=== PATIENT | male | born 2005 | race Caucasian/White ===

== ENCOUNTER 2025-07-21 10:54 | Outpatient (AMB) | payer OTHER, SELFPAY ==
--- NOTE | 2025-07-21 10:58 | A.OFFPC_ITS ---
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 Required: No Accompanied by: Mother Allergies Penicillins Allergy (Severe, Verified 07/21/25 11:02) Shortness of Breath Tobacco use date assessed: 07/21/25 Dental Screening Dental Screen Date: 07/21/25 Did you have a dental visit in the last 12 months?: Yes Did you have a dental problem in the last 6 months where you did not have access to dental care?: No Was dental information given to patient?: Patient has dentist HPI HPI Comments History of Present Illness Details History of Present Illness The patient is a 19 year old male presenting with complaints of stomach issues, including abdominal pain and diarrhea, as well as new onset episodes of chills, arm numbness, and body shaking. Abdominal pain and Diarrhea: The patient reports intermittent abdominal pain and diarrhea for the last month and a half. He previously sought treatment at an urgent care for these symptoms. Possible seizure disorder: The patient describes new, recent episodes where he experiences chills, followed by numbness and weakness in his arm for a second, after which everything returns to normal. These episodes are not painful and do not cause loss of memory. His mother witnessed one event where his whole body was shaking for a few seconds. Anxiety and Depression: The patient has a history of depression for almost three years and anxiety. He takes sertraline and hydroxyzine, and sees a therapist at [facility]. His anxiety was previously severe, preventing him from being around people and seeing a primary care doctor for two to three years. He reports his condition is now a 7 out of 10, with 10 being perfect. Surgical History: - Sinus surgery Medications: - Sertraline for depression and anxiety - Hydroxyzine for anxiety Social History: - Substance Use: The patient reports occ asional use of hookah and vape, typically on special occasions with friends. - Country of Origin: The patient is from [place]. - Hobbies and Interests: He enjoys playi [employer] games on his [employer], specifically Call of Duty and Lonnie. Family History: - The patient denies a family history of seizures or cancer. - His brother had an issue with his hand s where he could not hold things and took medication for a year. Past Medical History - Depression, diagnosed approximately ree years ago. - Anxiety disorder. - He has not seen a primary care physici an in two to three years due to anxiety. Health Maintenance - Patient uses hookah and vape occasiona lly. - Counseled to cut down on hookah use. [facility] Medical History (Updated 07/21/25 @ 12:54 by Elijah Park MD) Hookah pipe smoker Weakness of both arms Numbness of upper extremity Diarrhea Abdominal pain Convulsion Depression Anxiety Surgical History H/O rhinoplasty Social History (Updated 07/21/25 @ 11:05 by Wes Harvey CMA) Housing: House Alcohol intake: never Patient Tobacco Use Status: Never used Tobacco e-Cigarette/Vaping Use: Currently Using Second Hand Smoke Exposure: No service: No Current occupational status: unemployed Current occupational exposures/hazards: No Cognitive needs: No Hearing needs: No Vision needs: No Questionnaire PHQ-9 Over the last 2 weeks, how often have you been bothered by any of the following problems? 1. Little interest or pleasure in doing things: several days 2. Feeling down, depressed, or hopeless: more than half the days 3. Trouble falling or staying asleep, or sleeping too much: more than half the days 4. Feeling tired or having little energy: several days 5. Poor appetite or overeating: several days 6. Feeling bad about yourself - or that you are a failure or have let yourself or your family down: several days 7. Trouble concentrating on things, such as reading the newspaper or watching television: more than half the days 8. Moving or speaking so slowly that other people could have noticed. Or the opposite - being so fidgety or restless that you have been moving around a lot more than usual: not at all 9. Thoughts that you would be better off or of hurting yourself in some way: not at all Total score: 10 Depression Screening Interpretation: Positive Depression Screening Done: Yes 56626 - PHQ-9 Billing: Yes Source: Developed by Drs. Dominick Zarate, Michelle Fournier, Alen Galvan and colleagues, with an educational harmony from [employer]. Thrive Questionnaire Date Thrive assessed: 07/21/25 I am a: Patient What is your living situation today?: I have a steady place to live Within the past 12 months, did the food you bought not last and you didn't have the money to get more?: Never true Within the past 12 months, did you worry whether your food would run out before you got money to buy more?: Never true Do you have trouble paying for medicines?: No Do you have trouble getting transportation to medical appointments?: No Do you have trouble paying your heating and electricity bill?: No Do you have trouble taking care of your child, family member or friend?: No Do you have trouble with day-to-day activities such as bathing, preparing meals, shopping, managing finances, etc.?: No Are you currently unemployed and looking for a job?: No Are you interested in more education?: No Please select the resources that you would like help with: None Currently or been in a relationship where the following occur: No concerns reported THRIVE Score: 0 AUDIT C Alcohol Use Questionnaire (AUDIT-C) 1. How often do you have a drink containing alcohol?: Never Total Score: 0 ISRAEL-7 AMB Questionnaire ISRAEL-7 Date ISRAEL - 7 assessed: 07/21/25 Feeling nervous, anxious, or on edge: 1 = Several days Not being able to stop or control worryin = More than half the days Worrying too much about different things: 2 = More than half the days Trouble relaxin = More than half the days Being so restless that it is hard to sit still: 1 = Several days Becoming easily annoyed or irritable: 2 = More than half the days Feeling afraid as if something awful might happen: 2 = More than half the days Total ISRAEL-7 score (0-4 normal; 5-9 mild; 10-14 moderate; 15-21 severe): 12 Source: Developed by Drs. Dominick Zarate, Michelle Fournier, Alen Galvan and colleagues, with an educational harmony from [employer]. ISRAEL-7 Assessment Billing ISRAEL-7 Assessment Tool: ISRAEL-7 Assessment 49442 Review of Systems Narrative Review of Systems - Constitutional: Reports chills. - Gastrointestinal: Reports intermittent abdominal pain and diarrhea for the past month and a half. - Neurological: Reports recent onset of episodes involving arm numbness, weakness, and whole-body shaking for a few seconds. Denies loss of memory. - Psychiatric: Reports history of depression and anxiety. 10-point ROS reviewed and negative except as noted in HPI Physical exam (Primary Care) Vital Signs: Last Vital Signs Temp 98.1 F 07/21/25 11:08 Pulse 87 07/21/25 11:08 Resp 16 07/21/25 11:08 BP 107/61 07/21/25 11:08 Pulse Ox 97 07/21/25 11:08 Oxygen Delivery Method Room Air 07/21/25 11:08 BMI result Body Mass Index 20.8 Tobacco/Smoking Status: Tobacco use Status Tobacco use date assessed 07/21/25 07/21/25 11:11 Patient Tobacco Use Status Never used Tobacco 07/21/25 11:11 e-Cigarette/Vaping Use Currently Using 07/21/25 11:11 PHQ-9: PHQ-9 Score PHQ-9: Total score 10 07/21/25 11:30 Depression Screening Interpretation: Positive Thrive Assessment: Date of Thrive Assessment Date Thrive assessed 07/21/25 07/21/25 11:11 Currently or been in a relationship where the following occur: No concerns reported Narrative Physical Exam General: Well-appearing, in no acute distress. Vital signs: Within normal limits. HEENT: Normocephalic, atraumatic. PERRLA, EOMI. Conjunctiva clear, sclera anicteric. Oropharynx clear, mucous membranes moist. TMs intact bilaterally. Neck: Supple, no lymphadenopathy, no thyromegaly, no JVD or carotid bruits. Cardiovascular: RRR, normal S1/S2, no murmurs, rubs, or gallops. Peripheral pulses 2+ and symmetric. No edema. Respiratory: Lungs clear to auscultation bilaterally, no wheezes, rales, or rhonchi. Normal effort. Abdomen: Soft, non-tender, non-distended. Normoactive bowel sounds. Positive Rodriguez sign. No hepatosplenomegaly, no masses. MSK: Full range of motion, no joint swelling or deformity. Normal gait. Skin: Warm, dry, intact. No rashes, lesions, or pallor. Neuro: Alert and oriented x3. Cranial nerves II-XII intact. Strength 5/5 throughout. Sensation intact. Reflexes 2+ symmetric. Normal coordination and gait. Psych: Appropriate mood and affect. Normal judgment and insight. Results AMB Hemoglobin A1c AMB Hemoglobin A1c 5.2 % Last Edit by Wes Harvey CMA on 07/21/25 11:30 Results Reviewed Results Reviewed: Laboratory Last Values Hgb A1c (Clinic) 5.2 % (4.0-6.0) 07/21/25 11:28 Coding Level of Care Code New Pt Level 4 (09788) Add On Problem Visit Only Diagnoses Encounter for screening, unspecified Z13.9 Abdominal pain R10.9 Diarrhea R19.7 Numbness of upper extremity R20.0 Weakness of both arms R29.898 Convulsion R56.9 Anxiety F41.9 Depression F32.A Hookah pipe smoker F17.290 Additional Codes ISRAEL-7 Assessment Billing - ISRAEL-7 Assessment Tool: ISRAEL-7 Assessment 65065 ([id number]) PHQ-9 - 66131 - PHQ-9 Billing: Yes ([id number]) Assessment & Plan Assessment & Plan (1) Encounter for screening, unspecified: Code(s): Z13.9 - Encounter for screening, unspecified (2) Abdominal pain: Code(s): R10.9 - Unspecified abdominal pain Category: Medical (3) Diarrhea: Code(s): R19.7 - Diarrhea, unspecified Category: Medical (4) Numbness of upper extremity: Code(s): R20.0 - Anesthesia of skin Category: Medical (5) Weakness of both arms: Code(s): R29.898 - Other symptoms and signs involving the musculoskeletal system Category: Medical (6) Convulsion: Code(s): R56.9 - Unspecified convulsions Category: Medical (7) Anxiety: Code(s): F41.9 - Anxiety disorder, unspecified Category: Medical (8) Depression: Code(s): F32.A - Depression, unspecified Category: Medical (9) Hookah pipe smoker: Code(s): F17.290 - Nicotine dependence, other tobacco product, uncomplicated Category: Social Hx Plan Consent Patient was informed and verbally consented to the use of an ambient scribe for clinic note documentation during this visit. Plan 1. Possible Seizure Disorder - The patient's report of chills, arm numbness, and witnessed body shaking raises concern for possible seizure activity. - An electroencephalogram (EEG) will be ordered to evaluate the electrical activity in the brain and check for seizure potential. - A referral to neurology is planned pending the results of the EEG. 2. Abdominal Pain And Diarrhea - To evaluate the patient's gastrointestinal symptoms and other complaints, a comprehensive set of blood tests will be ordered. - Labs will include a comprehensive metabolic panel (CMP) to check kidney, liver function, and electrolytes. - A complete blood count (CBC), hemoglobin A1c, lipid panel, hepatitis B, hepatitis C, HIV, and syphilis tests will also be performed. - Additionally, levels of B12, folate, vitamin D, and thyroid function will be checked. 3. Follow-Up - The patient will follow up in two weeks to discuss the results of the labs and EEG. Discussion Notes I discussed with the patient and his mother my concerns regarding his new onset episodes of shaking and numbness, which could potentially be seizures. I explained the plan to order an EEG to check the electrical activity in his brain to investigate this possibility. I also informed them that a referral to neurology would be the next step depending on the test results. We reviewed the extensive bloodwork I will be ordering today to get a comprehensive view of his health, including checks for metabolic function, blood counts, infectious diseases, and vitamin levels. I counseled the patient on reducing his hookah use. We agreed that he will get the bloodwork done today and follow up in two weeks to discuss all the results. Patient Instructions - Please go to the lab today to have your blood drawn for the tests we discussed. - You will be contacted to schedule an appointment for an EEG, which is a test that checks the electrical activity in your brain. - It is recommended to cut down on smoking hookah. - Please return to the clinic in two weeks to review your test results. Medical Decision Making The patient is a 19-year-old male presenting with two primary concerns: chronic, intermittent GI issues and new-onset neurological symptoms. The neurological symptoms, described as chills, transient arm numbness and weakness, and a witnessed episode of whole-body shaking, are concerning for a possible seizure disorder. Given the description, an EEG is warranted to evaluate for underlying epileptiform activity. A referral to neurology will be considered based on the EEG results to further investigate and manage this issue. The patient's abdominal pain and diarrhea, along with a positive Rodriguez's sign on exam, warrants investigation. Comprehensive lab work, including a CMP, CBC, and inflammatory markers, will help rule out metabolic, infectious, or inflammatory causes. Given his lack of primary care for several years due to anxiety, a broad screening panel including lipids, HbA1c, vitamin levels, and infectious diseases is prudent for health maintenance. The plan is to gather this initial diagnostic data and have the patient follow up in two weeks to review results and determine the next steps, which will include a neurology consultation if the EEG is abnormal. Total Time Statement 30 min Total time spent caring for the patient today includes pre-visit chart review, documentation, review of laboratory and diagnostic imaging results, medication reconciliation, medically necessary evaluation, counseling on diagnoses, care coordination, ordering appropriate tests and medications, review of tests performed by other providers, reporting test results to the patient, and communication with other healthcare providers. Orders: Orders Hepatitis B Surface Antigen Today Z13.9 - Encounter for screening, unspecified Comprehensive Met. Panel Today Z13.9 - Encounter for screening, unspecified Hepatitis C Antibody Today Z13.9 - Encounter for screening, unspecified TSH reflex Free T4 Today Z13.9 - Encounter for screening, unspecified CT NG by PCR Urine Today Z13.9 - Encounter for screening, unspecified UA CC w/rflx Micro + Cult Today Z13.9 - Encounter for screening, unspecified AMB Hemoglobin A1c Today Z13.9 - Encounter for screening, unspecified Lipid Panel Today Z13.9 - Encounter for screening, unspecified Hemoglobin A1c Today Z13.9 - Encounter for screening, unspecified Magnesium Today Z13.9 - Encounter for screening, unspecified Vitamin D 25-OH (D2 and D3) Today Z13.9 - Encounter for screening, unspecified EEG Routine Today R56.9 - Unspecified convulsions Complete Blood Count Auto Diff Today Z13.9 - Encounter for screening, unspecified Syphilis Screen Today Z13.9 - Encounter for screening, unspecified HIV Ab/Ag Today Z13.9 - Encounter for screening, unspecified Vitamin B12 and Folate Today Z13.9 - Encounter for screening, unspecified Hepatitis B Surface Antibody Today Z13.9 - Encounter for screening, unspecified
[2025-07-21 11:08] VITALS: BP 107/61; PULSE 87; RESP 16; TEMP 36.7; O2SAT 97; BMI 20.8
--- OUTSIDE RECORDS SUMMARY | 2025-07-21 14:12 | XMS_ITS | Encounter Summary ---
Author Organization [facility] Address [address] [place] [id number] Phone Care Team Providers Care Rabbler Name Role Phone Rosina Church MD Primary Care Prov ider Reason for Visit * Reason Comments Med Refill Encounter Details Date Type Department Care Team (Late st Contact Info) Description 09/18/2022 Refill [facility] [address] [phone] Rosina Church MD [address] [id number] Seasonal allergic rhinitis, unspecified trigger Social History Tobacco Use Types Packs/Day Years Used Date Smoking Tobacco: Never Smokeless Tobacco: Never Comments:Never Alcohol Use Standard Drinks/Week Comments No 0 (1 standard drink = 0.6 oz pur e alcohol) Hunger/Food Answer Date Recorded In the last 12 months, did y ou or your family ever eat less than you felt you should because there wasn't enough money for food? No 04/06/2022 Stable Housing Answer Date Recorded Are you worried that in the next 2 months you may not have stable housing? No 04/06/2022 Transportation Concerns Answer Date Rec orded In the last 12 months, have you or your family ever had to go without healthcare because you didn't have a way to get there? No 04/06/2022 Hazards in Home Answer Date Recorded Think about the place you li ve. Do you have problems with any of the following? Pests (mice or roaches), mold, no/not working smoke detectors, water leaks, no window guards. No 2021 Financing Utilities Answer Date Recorde d In the last 12 months, has t he electric, gas, oil, or water company threatened to shut off your services in your home? No 04/06/2022 Safety at Home Answer Date Recorded Are you or your family worried about feeling saf e in your home? No 04/06/2022 Outside Support Answer Date Recorded Do you feel that you need mo re support from other people or programs to help you care for yourself or your family? No 04/06/2022 Understanding Health Concerns Answer Da te Recorded Do you need help understandi ng your or your child's healthcare needs (diagnosis, medications, plan, etc.)? No 04/06/2022 Financing Health Concerns Answer Date R ecorded In the last 12 months, was t here a time when your child needed to see a doctor or get medications or supplies but could not because of cost? No 04/06/2022 Missing School or Work Answer Date Ted rded Did you or your child miss s chool or work because of a health problem that could have been avoided? No 04/06/2022 Sex and Gender Information Value Date Recorded Sex Assigned at Male 03/28/2020 9:03 PM EDT Legal Sex Male 12:17 PM EST Gender Identity Male 03/28/2020 9:03 PM EDT Sexual Orientation Straight 03/23/2020 2: 47 PM EDT documented as of this encounter Plan of Treatment Not on file documented as of this encounter Visit Diagnoses Diagnosis Seasonal allergic rhinitis, unspecified trigger documented in this encounter Care Teams Rabbler Relationship Specialty Start Date End Date Rosina Church MD PCP - General Pediatrics 08/22/22 03/18/23 documented as of this encounter
--- OUTSIDE RECORDS SUMMARY | 2025-07-21 14:12 | XMS_ITS | Encounter Summary ---
Author Organization [facility] Address [address] [place] [id number] Phone Care Team Providers Care Manager Transportation Name Role Phone Rosina Church MD Primary Care Prov ider Reason for Visit * Reason Comments Med Refill Encounter Details Date Type Department Care Team ([facility] st Contact Info) Description 03/18/2023 Refill [facility] [address] [phone] Rosina Church MD [address] [address] Seasonal allergic rhinitis, unspecified trigger Social History [...] PM EDT documented as of this encounter Miscellaneous Notes * Telephone Encounter - Essence Rubio LPN - 03/20/2023 10:12 AM EDT I left v/m for parent to confirm whether refill is needed. * Telephone Encounter - Essence Rubio LPN - 03/19/2023 9:03 AM EDT I left v/m for patient to confirm whether refill is needed. documented in this encounter Plan of Treatment Not on file documented as of this encounter Visit Diagnoses Diagnosis Seasonal allergic rhinitis, unspecified trigger documented in this encounter Care Teams Manager Transportation Relationship Specialty Start Date End Date Rosina Church MD PCP - General Pediatrics 08/22/22 03/18/23 documented as of this encounter
--- OUTSIDE RECORDS SUMMARY | 2025-07-21 14:12 | XMS_ITS | Encounter Summary ---
Author Organization [facility] Address [address] [place] [address] Phone Care Team Providers Care Plumbing Contractor Name Role Phone Rosina Church MD Primary Care Prov ider Reason for Visit * Reason Comments Med Refill Encounter Details Date Type Department Care Team (Late st Contact Info) Description 04/01/2020 Refill [facility] [address] [phone] Rosina Church MD [address] [address] Seasonal allergic rhinitis, unspecified trigger Social History [...] there wasn't enough money for food? No 03/23/2020 Stable Housing Answer Date Recorded Are you worried that in the next 2 months you may not have stable housing? No 03/23/2020 Transportation Concerns Answer Date Rec orded In the last 12 months, have you or your family ever had to go without healthcare because you didn't have a way to get there? No 03/23/2020 Hazards in Home Answer Date Recorded Think about the place you li ve. Do you have problems with any of the following? Pests (mice or roaches), mold, no/not working smoke detectors, water leaks, no window guards. No 2019 Financing Utilities Answer Date Recorde d In the last 12 months, has t he electric, gas, oil, or water company threatened to shut off your services in your home? No 03/23/2020 Safety at Home Answer Date Recorded Are you or your family worried about feeling saf e in your home? No 03/23/2020 Outside Support Answer Date Recorded Do you feel that you need mo re support from other people or programs to help you care for yourself or your family? No 03/23/2020 Understanding Health Concerns Answer Da te Recorded Do you need help understandi ng your or your child's healthcare needs (diagnosis, medications, plan, etc.)? No 03/23/2020 Financing Health Concerns Answer Date R ecorded In the last 12 months, was t here a time when your child needed to see a doctor or get medications or supplies but could not because of cost? No 03/23/2020 Missing School or Work Answer Date Ted rded Did you or your child miss s chool or work because of a health problem that could have been avoided? No 03/23/2020 Sex and Gender Information Value Date Recorded Sex Assigned at Male 03/28/2020 9:03 PM EDT Legal Sex Male 12:17 PM EST Gender Identity Male 03/28/2020 9:03 PM EDT Sexual Orientation Straight 03/23/2020 2: 47 PM EDT documented as of this encounter Miscellaneous Notes * Telephone Encounter - Essence Rubio LPN - 04/02/2020 8:44 AM EDT I left v/m for parent to confirm that refill is needed. documented in this encounter Plan of Treatment Not on file documented as of this encounter Visit Diagnoses Diagnosis Seasonal allergic rhinitis, unspecified trigger documented in this encounter Care Teams Plumbing Contractor Relationship Specialty Start Date End Date Rosina Church MD PCP - General Pediatrics 08/22/22 03/18/23 documented as of this encounter
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
--- OUTSIDE RECORDS SUMMARY | 2025-07-21 14:13 | XMS_ITS | Clinical Summary ---
Author Organization [facility] it Address [address] [place] [address] Care Team Providers Care Milk Truck Driver Name Role Phone Unavailable Primary Care Provider Unavailabl e Social History Tobacco Use Types Packs/Day Years Used Date Smoking Tobacco: Never Assessed Sex and Gender Information Value Date Recorded Sex Assigned at Not on file Legal Sex Male 9:44 AM EST Gender Identity Not on file Sexual Orientation Not on file Plan of Treatment Health Maintenance Due Date Last Done Comments Varicella Vaccines (1 of 2 - 13+ 2-dose series) 2017 HPV Vaccines (1 - Male 3-dos e series) 2019 Meningococcal B Vaccine (1 o f 2 - Standard) 2020 Annual Well Child Visit (3-2 1 years old) 07/04/2022 HIV Screening 07/04/2022 Hepatitis C Screening 07/04/2022 Social Influencers of Health Screening 07/04/2022 DTaP,Tdap,and Td Vaccines (1 - Tdap) 2023 Hepatitis B Vaccines (1 of 3 - 19+ 3-dose series) 2023 Depression Screening 08/06/2024 COVID-19 Vaccine (1 - 2024-2 6 season) 2025 Influenza Vaccine (#1) 2025 06/29/2020 RSV Immunization Adult Patie nts (1 - 1-dose 75+ series) 2079 HIB Vaccines Aged Out No longer eligi ble based on patient's age to complete this topic Hepatitis A Vaccines Aged Out No long er eligible based on patient's age to complete this topic IPV Vaccines Aged Out No longer eligi ble based on patient's age to complete this topic MMR Vaccines Aged Out No longer eligi ble based on patient's age to complete this topic Meningococcal ACWY Vaccine Aged Out N o longer eligible based on patient's age to complete this topic Pneumococcal Vaccine: Pediat rics (0 to 5 Years) and At-Risk Patients (6 to 49 Years) Aged Out No longer eligi ble based on patient's age to complete this topic RSV Immunization Patients Un michaelle 20 months Aged Out No longer eligible b ased on patient's age to complete this topic
--- OUTSIDE RECORDS SUMMARY | 2025-07-21 14:13 | XMS_ITS | Clinical Summary ---
Author Organization [facility] Address [address] [place] [phone] Phone Care Team Providers Care Ophthalmic Technician Name Role Phone Rosina Church MD Primary Ca re Provider Allergies Active Allergy Reactions Criticality Noted Date Comments Penicillins 07/18/2018 Medications No known medications Active Problems Problem Noted Date Diagnosed Date Right lower quadrant abdominal pain 07/18/2018 Social History Tobacco Use Types Packs/Day Years Used Date Smoking Tobacco: Never Assessed Education Answer Date Recorded Are you interested in more education? Not on christal e 12/01/2022 Are you concerned about learning? Not on file 12/01/2022 No 12/01/2022 No 12/01/2022 Digital Access Answer Date Recorded No 12/30/2022 No 12/30/2022 No 12/30/2022 Reliable internet access at home? Not on file 12/30/2022 Device with a working camera? Not on file Sex and Gender Information Value Date Recorded Sex Assigned at Not on file Legal Sex Male 9:47 AM EST Gender Identity Not on file Sexual Orientation Not on file Last Filed Vital Signs Vital Sign Reading Time Taken Comments Blood Pressure 86/56 08/15/2018 9:31 AM EST Pulse 68 08/15/2018 9:31 AM EST Temperature - - Respiratory Rate 16 08/15/2018 9:31 AM EST Oxygen Saturation - - Inhaled Oxygen Concentration - - Weight 52.4 kg (115 lb 9.6 oz) 08/15/2018 9:31 A M EST Height 164 cm (5' 4.57 ) 08/15/2018 9:31 AM EST Body Mass Index 19.5 08/15/2018 9:31 AM EST Plan of Treatment Health Maintenance Due Date Last Done Comments DEVELOPMENTAL/BEHAVIORAL SCREENING (PHQ, PSC, or SWYC) 2007 DEPRESSION SCREENING 2016 SMOKING Hx and SMOKELESS TOBACCO SCREENING 2017 MENINGOCOCCAL VACCINES (B) (1 of 2 - Standard) 2020 ADOLESCENT UNIVERSAL LIPID SCREENING 2021 HEPATITIS C SCREENING 2022 HIV ONE-TIME SCREENING (18-65 YEARS) 2022 INFLUENZA VACCINE (#1) 2025 06/29/2020 COVID-19 VACCINE (2 - 2024- season) 2025 12/23/2020 COMBINED DTaP,Tdap,Td (7 - Td or Tdap) 02/22/2027 02/22/2017, 04/28/2014, 07/20/2008, Additional history exists PNEUMOCOCCAL VACCINES (0-49 years) Aged Out 2004, 2004 No longer eligibl e based on patient's age to complete this topic HIB VACCINES Aged Out 07/20/2005, 05/06, 2004, Additional history exists No longer eligible based on patient's age to complete this topic HEPATITIS A VACCINES Completed 02/26/2014, 05/10/20 13 MMR VACCINES Completed 04/28/2014, 08/29/2006 VARICELLA VACCINES Completed 04/28/2014, 05/10/2013 MENINGOCOCCAL VACCINES (ACWY) Aged Out 11/25/2015 No longer eligible based on patient's age to complete this topic HPV VACCINES Completed 12/14/2016, 11/25/2015 Medical Devices Not on file Insurance [employer] [facility]CO [employer]CO [facility] [employer] ACO Care Teams Ophthalmic Technician Relationship Specialty Start Date End Date Rosina Church MD [address] [place] [id number] PCP - General Adolescent Medicine 07/17/18 Additional Source Comments The information contained in this document represents components of the legal health record. It is not the complete legal health record.[facility]
--- OUTSIDE RECORDS SUMMARY | 2025-07-21 14:13 | XMS_ITS | Encounter Summary ---
Author Organization [facility] Address [address] [place] [phone] Phone Care Team Providers Care Stile Ripsaw Operator Name Role Phone Rosina Church MD Primary Care Prov ider Reason for Visit * Reason Comments Med Refill Encounter Details Date Type Department Care Team ([facility] st Contact Info) Description 02/21/2022 Refill [facility] [address] [phone] Rosina Church MD [address] [phone] Seasonal allergic rhinitis due to pollen Social History Tobacco Use Types Packs/Day Years Used Date Smoking Tobacco: Never Smokeless Tobacco: Never Comments:Never Alcohol Use Standard Drinks/Week Comments No 0 (1 standard drink = 0.6 oz pur e alcohol) Hunger/Food Answer Date Recorded In the last 12 months, did y ou or your family ever eat less than you felt you should because there wasn't enough money for food? No 01/13/2021 Stable Housing Answer Date Recorded Are you worried that in the next 2 months you may not have stable housing? No 01/13/2021 Transportation Concerns Answer Date Rec orded In the last 12 months, have you or your family ever had to go without healthcare because you didn't have a way to get there? No 01/13/2021 Hazards in Home Answer Date Recorded Think about the place you li ve. Do you have problems with any of the following? Pests (mice or roaches), mold, no/not working smoke detectors, water leaks, no window guards. No 2020 Financing Utilities Answer Date Recorde d In the last 12 months, has t he electric, gas, oil, or water company threatened to shut off your services in your home? No 01/13/2021 Safety at Home Answer Date Recorded Are you or your family worried about feeling saf e in your home? No 01/13/2021 Outside Support Answer Date Recorded Do you feel that you need mo re support from other people or programs to help you care for yourself or your family? No 01/13/2021 Understanding Health Concerns Answer Da te Recorded Do you need help understandi ng your or your child's healthcare needs (diagnosis, medications, plan, etc.)? No 01/13/2021 Financing Health Concerns Answer Date R ecorded In the last 12 months, was t here a time when your child needed to see a doctor or get medications or supplies but could not because of cost? No 01/13/2021 Missing School or Work Answer Date Ted rded Did you or your child miss s chool or work because of a health problem that could have been avoided? No 01/13/2021 Sex and Gender Information Value Date Recorded Sex Assigned at Male 03/28/2020 9:03 PM EDT Legal Sex Male 12:17 PM EST Gender Identity Male 03/28/2020 9:03 PM EDT Sexual Orientation Straight 03/23/2020 2: 47 PM EDT documented as of this encounter Miscellaneous Notes * Telephone Encounter - Essence Rubio LPN - 02/21/2022 11:08 AM EDT I left v/m for parent to confirm whether refill is needed. * Telephone Encounter - Mariana Conklin MA - 02/21/2022 9:14 AM EDT Left voicemail regarding needing this refill. documented in this encounter Plan of Treatment Not on file documented as of this encounter Visit Diagnoses Diagnosis Seasonal allergic rhinitis due to pollen documented in this encounter Care Teams Stile Ripsaw Operator Relationship Specialty Start Date End Date Rosina Church MD PCP - General Pediatrics 08/22/22 03/18/23 documented as of this encounter
--- OUTSIDE RECORDS SUMMARY | 2025-07-21 14:13 | XMS_ITS | Encounter Summary ---
Author Organization [facility] Address [address] [place] [address] Phone Care Team Providers Care Office Machine Embossograph Operator Name Role Phone Rosina Church MD Primary Care Prov ider Encounter Details Date Type Department Care Team (Latest Contact Info) Description 11/06/2018 ED [facility] Social History Tobacco Use Types Packs/Day Years Used Date Smoking Tobacco: Never Smokeless Tobacco: Never Comments:Never Alcohol Use Standard Drinks/Week Comments No 0 (1 standard drink = 0.6 oz pur e alcohol) Sex and Gender Information Value Date Recorded Sex Assigned at Male 03/28/2020 9:03 PM EDT Legal Sex Male 12:17 PM EST Gender Identity Male 03/28/2020 9:03 PM EDT Sexual Orientation Straight 03/23/2020 2: 47 PM EDT documented as of this encounter ED Notes * DOCUMENTS, [facility] - 11/06/2018 9:50 AM EDT EDPDOC [facility] EDM *LIVE* ED Physician Documentation Summary Report Patient: RUPAL ARCEO 13/M Service Date: 11/06/18 Account: [id number] : 2005 Service Time: 0950 PCP: DALTON MR#: [id number] HPI General Chief Complaint: Extremity Complaint/Injury Stated Complaint: FALL ON ARM, YESTERDAY Time Seen by MD: 09:47 Source: patient, family, RN notes reviewed Exam Limitations: no limitations Known Signs of Infection: No Ebola Infection Screening: No Risk Documentation Initial Comments 13 year old male complaining of Fall On Arm, Yesterday HPI Comment This is a 13 year old male accompanied by mother who presents to the emergency department with complaints of left elbow pain since yesterday. Patient reports that yesterday while walking home from school, he tripped ultimately striking his left elbow on the ground. Patient reports a 6/10 left elbow pain that worsens with palpation and movement. Denies taking any medication to alleviate the symptoms. Denies any prior injury to his left elbow. Denies any fevers, chills, nausea, vomiting. No other concerns or complaints at this time. Past Medical History Past Medical History PMH and Allergies Reviewed: Yes PMH Collected at Triage Allergies: Coded Allergies: Penicillins (Verified Allergy, Unknown, UNKNOWN, 11/06/18) Pediatric Medical Problem Hx: Denies PMH Social History Smoking Status: Never Smoker Alcohol History: none Drug History: denies Family History Family History: no pertinent family hx Past Inpatient Medical History Inpatient Medical Hx: no pertinent medical hx Inpatient Surgical Hx: no pertinent surgical hx Review Of Systems Review Of Systems Constitutional Symptoms: Denies: chills, fever Eye: Denies: eye pain, vision changes ENT: Denies: nasal pain, mouth pain, sore throat Respiratory: Denies: sputum, wheezes Musculoskeletal: Reports: extremity pain, joint pain; Denies: muscle pain, muscle stiffness, neck pain Gastrointestinal: Denies: diarrhea, nausea, vomiting Skin: Denies: rash Neurological: Denies: numbness, tingling Allergic/Immunologic: Denies: hives Hematologic/Lymphatic: Denies: bleeding Endocrine: Denies: diaphoresis Other: See HPI Exam Exam Vital Signs Vital Signs Date Time Temp Pulse Resp B/P (MAP) Pulse Ox O2 Delivery O2 Flow Rate FiO2 11/06/18 09:49 36.7 80 16 105/63 (77) 100 Room Air Vital Signs Reviewed: on nursing documentation Exam Comment General: awake, calm, cooperative, No apparent distress Skin: warm, dry, No diaphoresis Eyes: PERRLA, EOMI Neck: soft/supple, full range of motion Respiratory: clear to auscultation Cardiovascular: regular rate and rhythm Musculoskeletal: Left elbow there is no obvious bony deformity or swelling. Point tenderness over radial head and posterior aspect. Neurological: alert and oriented X3, no focal deficit Course Course Differential Diagnosis Left elbow contusion Dislocation Sprain Fracture Course Comment ED observation Note Encounter 11-06-2018 9:48 AM Vital signs reviewed. Reviewed all pertinent PMHx and SHx FmHx: no pertinent medical history assessment and plan :Patient seen and evaluated. X-ray of left elbow ordered and reviewed. Patient provided with sling Orders Orders Orders Procedure Category Date Status Time Cr Elbow Lt Min 3 CR 11/06/18 Resulted Views 09:50 Ed Observation Status ED 11/06/18 Transmitted 10:06 Sling, Apply ED 11/06/18 Transmitted 10:18 Xray Xray Interpreted By Me: No Xray Comment [facility] Diagnostic Imaging Department [address] [place] [id number] Patient: RUPAL ARCEO /Age/Sex: 2005 - 13 - M Unit#: [id number] Location/Status: SPER/REG ER Mnemonic/Ordering Site: ELBOWLT/SPMAIN Ordering Physician: DEEAPK HANSON CR Elbow LT Min 3 Views - 04/03/19 - 1004 HISTORY: Left elbow pain after fall. FINDINGS: 3 views left elbow demonstrate no fracture, dislocation, or significant joint effusion. There is normal bone mineralization. Soft tissues are unremarkable. Normal appearance of the growth plates. IMPRESSION: No fracture. [id number] Dictating Physician: VICTORINO STERLING MD Electronically Signed by: VICTORINO STERLING MD Dic Date/Time: 11/06/18 1009 Sign date/Time: 11/06/18 1010 Departure Diagnosis: fall, left elbow injury Disposition: HOME WITH CAREGIVER Condition: Stable Patient Instructions: Elbow Sprain (ED) Additional Instructions: Call the store stock associate today to make a follow-up appointment for next week. Ice the area 3-4 times daily for 15-20 minutes. Wear the sling during the day for the next 48 hours. Take the sling off over the weekend. Take the prescribed ibuprofen 600 mg every 6 hours as needed for pain. Thank you for coming to the [facility] Emergency Department today. Our entire team works together to provide you with the best care possible. Examination and treatment you received in the emergency department has been rendered on an EMERGENCY basis only. It is not intended to be a substitute for or an effort to provide complete medical care. You should follow-up with your primary care provider. Please report to your physician any new or remaining problems, because it is impossible to recognize and treat all elements of injury or illness in a single emergency department visit. If you do not have a primary care provider or require a referral, a follow- up doctor evaluation assistant for the emergency department will be provided in your discharge packet. In the event that you're unable to obtain a followup appointment in a timely fashion, OR you are not getting any better, OR you are getting worse, OR you develop any symptoms of concern, please return here immediately for further evaluation. The emergency department is open 24 hours a day, 7 days a week. Your discharge report is based on information that was available when you were in the emergency department. Scripts Ibuprofen (Ibuprofen) 600 Mg Tablet 600 MG PO Q6H PRN for MILD PAIN SCALE 1-3, #30 TABLET Prov: DEEPAK HANSON 11/06/18 Attestation Scribe Information Enter Scribe Name Yue Chenibrenee Enter Provider Name JOHANNA Castillo Scribe Statement I am serving as a scribe to document services personally performed by the Provider named above, based on the patient's responses to questions from the Provider and the Provider's statements to me. Provider Information Provider Attestation I was present during the entire encounter which the scribe was recording. I have reviewed and verified that the information entered by scribe is accurate. DEEPAK HANSON Nov 06, 2018 10:23 ED Physician: DEEPAK HANSON Documentation Date/Time: 11/06/18 1023 <Electronically signed by JOHANNA GRANDA> 11/06/18 1328 <Electronically signed by DORIS METCALF MD> 11/07/18 1322 documented in this encounter Plan of Treatment Not on file documented as of this encounter Visit Diagnoses Not on filedocumented in this encounter Care Teams Office Machine Embossograph Operator Relationship Specialty Start Date End Date Rosina Church MD PCP - General Pediatrics 08/22/22 03/18/23 documented as of this encounter
--- OUTSIDE RECORDS SUMMARY | 2025-07-21 14:13 | XMS_ITS | Encounter Summary ---
Author Organization [facility] Address [address] [place] [address] Phone Care Team Providers Care Conveyor Mechanic Name Role Phone Rosina Church MD Primary Care Prov ider Reason for Visit * Reason Comments Med Refill Encounter Details Date Type Department Care Team (Late st Contact Info) Description 04/06/2020 Refill [facility] [address] [phone] Rosina Church MD [address] [phone] Seasonal allergic rhinitis, unspecified trigger Social History [...] trigger documented in this encounter Care Teams Conveyor Mechanic Relationship Specialty Start Date End Date Rosina Church MD PCP - General Pediatrics 08/22/22 03/18/23 documented as of this encounter
--- OUTSIDE RECORDS SUMMARY | 2025-07-21 14:13 | XMS_ITS | Encounter Summary ---
Author Organization [facility] Address [address] [place] [address] Phone Care Team Providers Care Home Appliances Mechanic Name Role Phone Rosina Church MD Primary Care Prov ider Encounter Details Date Type Department Care Team (Late st Contact Info) Description 03/22/2017 Conversion Encounter [facility] - [address] [phone] Social History Tobacco Use Types Packs/Day Years [...] on filedocumented in this encounter Care Teams Home Appliances Mechanic Relationship Specialty Start Date End Date Rosina Church MD PCP - General Pediatrics 08/22/22 03/18/23 documented as of this encounter
--- OUTSIDE RECORDS SUMMARY | 2025-07-21 14:13 | XMS_ITS | Encounter Summary ---
Author Organization [facility] Address [address] [place] [address] Phone Care Team Providers Care Nursery School Teacher Name Role Phone Rosina Church MD Primary Care Prov ider Encounter Details Date Type Department Care Team (Late st Contact Info) Description 10/04/2017 Conversion Encounter [facility] [address] [phone] Rosina Charles MD [address] [address] Social History Tobacco Use Types Packs/Day Years Used Date Smoking Tobacco: Never Comments:Never Sex and Gender Information Value Date Recorded Sex Assigned at Male 03/28/2020 9:03 PM EDT Legal Sex Male 12:17 PM EST Gender Identity Male 03/28/2020 9:03 PM EDT Sexual Orientation Straight 03/23/2020 2: 47 PM EDT documented as of this encounter Plan of Treatment Not on file documented as of this encounter Visit Diagnoses Not on filedocumented in this encounter Care Teams Nursery School Teacher Relationship Specialty Start Date End Date Rosina Church MD PCP - General Pediatrics 08/22/22 03/18/23 documented as of this encounter
== END 2025-07-21 11:37 | disposition home or self-care (01) ==
PROVIDERS: PCP Student in an Organized Health Care Education/Training Program; Visit Provider Student in an Organized Health Care Education/Training Program
DX: Z13.9 Encounter for screening, unspecified (principal); R10.9 Unspecified abdominal pain; R19.7 Diarrhea, unspecified; R20.0 Anesthesia of skin; R29.898 Other symptoms and signs involving the musculoskeletal system; R56.9 Unspecified convulsions; F41.9 Anxiety disorder, unspecified; F32.A Depression, unspecified; F17.290 Nicotine dependence, other tobacco product, uncomplicated

== ENCOUNTER → 2025-07-21 10:54 | Outpatient (BNVA) | payer OTHER, SELFPAY | PROVIDERS: Visit Provider Student in an Organized Health Care Education/Training Program | DX: R10.9 Unspecified abdominal pain (principal); R19.7 Diarrhea, unspecified; R20.0 Anesthesia of skin; R29.898 Other symptoms and signs involving the musculoskeletal system; R56.9 Unspecified convulsions; F41.9 Anxiety disorder, unspecified; F32.A Depression, unspecified; F17.290 Nicotine dependence, other tobacco product, uncomplicated; Z71.6 Tobacco abuse counseling | CPT/HCPCS: 83036; 96127; 99202 ==

== ENCOUNTER 2025-07-23 09:21 | Outpatient (REF) | payer OTHER, SELFPAY ==
--- OUTSIDE RECORDS SUMMARY | 2025-07-23 10:46 | XMS_ITS | Encounter Summary ---
Author Organization [facility] Address [address] [place] [address] Phone Care Team Providers Care Hot Pond Operator Name Role Phone Rosina Church MD Primary Care Prov ider Reason for Visit * Reason Comments Med Refill Encounter Details Date Type Department Care Team ([facility] st Contact Info) Description 03/18/2023 Refill [facility] [address] [phone] Rosina Church MD [address] [address] Seasonal allergic rhinitis, unspecified trigger Social History [...] trigger documented in this encounter Care Teams Hot Pond Operator Relationship Specialty Start Date End Date Rosina Church MD PCP - General Pediatrics 08/22/22 03/18/23 documented as of this encounter
--- OUTSIDE RECORDS SUMMARY | 2025-07-23 10:46 | XMS_ITS | Encounter Summary ---
Author Organization [facility] Address [address] [place] [address] Phone Care Team Providers Care Kier Boiler Name Role Phone Rosina Church MD Primary Care Prov ider Encounter Details Date Type Department Care Team (Late st Contact Info) Description 03/22/2017 Conversion Encounter [facility] - [address] [address] Social History Tobacco Use Types Packs/Day Years [...] on filedocumented in this encounter Care Teams Kier Boiler Relationship Specialty Start Date End Date Rosina Church MD PCP - General Pediatrics 08/22/22 03/18/23 documented as of this encounter
--- OUTSIDE RECORDS SUMMARY | 2025-07-23 10:46 | XMS_ITS | Encounter Summary ---
Author Organization [facility] Address [address] [place] [address] Phone Care Team Providers Care Member Services Representative Name Role Phone Rosina Church MD Primary Care Prov ider Reason for Visit * Reason Comments Med Refill Encounter Details Date Type Department Care Team (Late st Contact Info) Description 09/18/2022 Refill [facility] [address] [phone] Rosina Church MD [address] [phone] Seasonal allergic rhinitis, unspecified trigger Social History [...] trigger documented in this encounter Care Teams Member Services Representative Relationship Specialty Start Date End Date Rosina Church MD PCP - General Pediatrics 08/22/22 03/18/23 documented as of this encounter
--- OUTSIDE RECORDS SUMMARY | 2025-07-23 10:46 | XMS_ITS | Encounter Summary ---
Author Organization [facility] Address [address] [place] [address] Phone Care Team Providers Care Tannery Gummer Name Role Phone Rosina Church MD Primary Care Prov ider Reason for Visit * Reason Comments Med Refill Encounter Details Date Type Department Care Team ([facility] st Contact Info) Description 02/21/2022 Refill [facility] [address] [phone] Rosina Church MD [address] [address] Seasonal allergic rhinitis due to pollen Social [...] pollen documented in this encounter Care Teams Tannery Gummer Relationship Specialty Start Date End Date Rosina Church MD PCP - General Pediatrics 08/22/22 03/18/23 documented as of this encounter
--- OUTSIDE RECORDS SUMMARY | 2025-07-23 10:46 | XMS_ITS | Encounter Summary ---
Author Organization [facility] Address [address] [place] [address] Phone Care Team Providers Care Supervisor Electronics Processing Name Role Phone Rosina Church MD Primary Care Prov ider Reason for Visit * Reason Comments Med Refill Encounter Details Date Type Department Care Team (Late st Contact Info) Description 04/01/2020 Refill [facility] [address] [phone] Rosina Church MD [address] [address] Seasonal allergic rhinitis, unspecified trigger Social History [...] trigger documented in this encounter Care Teams Supervisor Electronics Processing Relationship Specialty Start Date End Date Rosina Church MD PCP - General Pediatrics 08/22/22 03/18/23 documented as of this encounter
--- OUTSIDE RECORDS SUMMARY | 2025-07-23 10:46 | XMS_ITS | Encounter Summary ---
Author Organization [facility] Address [address] [place] [address] Phone Care Team Providers Care Baton Teacher Name Role Phone Rosina Church MD Primary Care Prov ider Encounter Details Date Type Department Care Team (Latest Contact Info) Description 11/06/[address] [facility] Social History Tobacco Use Types Packs/Day Years [...] of this encounter ED Notes * DOCUMENTS, [facility] - 11/06/2018 9:[address] [facility] EDM *LIVE* ED Physician Documentation Summary Report Patient: RUPAL ARCEO 13/M Service Date: 11/06/18 Account: [id number] : 2005 Service Time: 0950 PCP: DALTON MR#: [id number] HPI General Chief Complaint: Extremity Complaint/Injury Stated [...] Xray Interpreted By Me: No Xray Comment [facility] Diagnostic Imaging Department [address] [place] [address] Patient: RUPAL ARCEO /Age/Sex: 2005 - 13 - M Unit#: [id number] Location/Status: SPER/REG ER Mnemonic/Ordering Site: ELBOWLT/SPMAIN Ordering Physician: DEEPAK HANSON CR Elbow LT Min 3 Views - 04/03/19 - 1004 HISTORY: Left elbow pain after fall. FINDINGS: 3 views left elbow demonstrate no fracture, dislocation, or significant joint effusion. There is normal bone mineralization. Soft tissues are unremarkable. Normal appearance of the growth plates. IMPRESSION: No fracture. [id number] Dictating Physician: VICTORINO STERLING MD Electronically Signed by: VICTORINO STERLING MD Dic Date/Time: 11/06/18 1009 Sign date/Time: 11/06/18 1010 Departure Diagnosis: fall, left elbow injury Disposition: HOME WITH CAREGIVER Condition: Stable Patient Instructions: Elbow Sprain (ED) Additional Instructions: Call the lusterer today to make a follow-up appointment for next week. Ice the area 3-4 times daily for 15-20 minutes. Wear the sling during the day for the next 48 hours. Take the sling off over the weekend. Take the prescribed ibuprofen 600 mg every 6 hours as needed for pain. Thank you for coming to the [facility] Emergency Department today. Our entire team works [...] require a referral, a follow- up doctor early interventionist for the emergency department will be provided [...] on filedocumented in this encounter Care Teams Baton Teacher Relationship Specialty Start Date End Date Rosina Church MD PCP - General Pediatrics 08/22/22 03/18/23 documented as of this encounter
--- OUTSIDE RECORDS SUMMARY | 2025-07-23 10:46 | XMS_ITS | Encounter Summary ---
Author Organization [facility] Address [address] [place] [address] Phone Care Team Providers Care Integrated Marketing Intern Name Role Phone Rosina Church MD Primary Care Prov ider Reason for Visit * Reason Comments Med Refill Encounter Details Date Type Department Care Team (Late st Contact Info) Description 04/06/2020 Refill [facility] [address] [phone] Rosina Church MD [address] [address] Seasonal allergic rhinitis, unspecified trigger Social History [...] trigger documented in this encounter Care Teams Integrated Marketing Intern Relationship Specialty Start Date End Date Rosina Church MD PCP - General Pediatrics 08/22/22 03/18/23 documented as of this encounter
--- OUTSIDE RECORDS SUMMARY | 2025-07-23 10:46 | XMS_ITS | Clinical Summary ---
Author Organization [facility] Address [address] [facility] [address] [place] [address] Phone Care Team Providers Care Lead Data Entry Operator Name Role Phone Rosina Church MD [...] 11/25/2015 Medical Devices Not on file Insurance [employer] [facility] [employer] [facility] [employer] Care Teams Lead Data Entry Operator Relationship Specialty Start Date End Date Rosina Church MD [address] [place] [address] PCP - General Adolescent Medicine 07/17/18 Additional Source Comments The information contained in this document represents components of the legal health record. It is not the complete legal health record.[facility]
--- OUTSIDE RECORDS SUMMARY | 2025-07-23 10:46 | XMS_ITS | Encounter Summary ---
Author Organization [facility] Address [address] [place] [address] Phone Care Team Providers Care Mud Trucker Name Role Phone Rosina Church MD Primary Care Prov ider Encounter Details Date Type Department Care Team (Late st Contact Info) Description 10/04/2017 Conversion Encounter [facility] [address] [phone] Rosnia Charles MD [address] [address] Social History Tobacco Use Types Packs/Day Years [...] on filedocumented in this encounter Care Teams Mud Trucker Relationship Specialty Start Date End Date Rosina Church MD PCP - General Pediatrics 08/22/22 03/18/23 documented as of this encounter
--- OUTSIDE RECORDS SUMMARY | 2025-07-23 10:46 | XMS_ITS | Clinical Summary ---
Author Organization [facility] Address [address] [place] [address] Phone Care Team Providers Care Marketing Operations Specialist Name Role Phone Unavailable Primary Care Provider [...] she (Maryjo) needed notes and demographics for Rupal. I faxed her the notes and demographics. 06/05/2018- On 05/28/18 & 05/30/18 and today I received a call from mom stating that Rupal is continually receiving jail, he doesn't want to go to school [...] language to fit in which he receives jail for. She stated that he is receiving all services documented in his IEP. She stated that they have created a small lunch group for Rupal with other students to increase his social skills. She stated that Samer is not a behavioral problem. I called mom to let her know about my conversation with the principal. Mom stated that Rupal says he gets jail for doing nothing. I suggested that mom request a meeting with all of Rupal's teachers. 10/29/18- I received a call from mom stating that Rupal ran out of the school building today and she had to pick him up. She stated that she doesn't know what to do about him. She stated that he doesn't like going to school and always gets jail. I suggested to mom that she call [...] 9:08 PM EDT): F/up labs ordered at [facility] Heart murmur 07/11/2021 Overview (01/09/2022): Benign, [...] (11/24/2021 10:30 AM EDT): Will complete a [facility] diary. Prior to f/up in 3 wks. 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 AGE [facility] Assessment & Plan (04/17/2019 7:48 PM [...] t he electric, gas, oil, or water [employer] threatened to shut off your services in [...]
--- OUTSIDE RECORDS SUMMARY | 2025-07-23 10:46 | XMS_ITS | Clinical Summary ---
Author Organization [facility] it Address [address] [place] [address] Care Team Providers Care Purchasing Associate Name Role Phone Unavailable Primary Care Provider [...]
[2025-07-23 14:19] LABS: Appearance Urine Clear; Glucose Urine UA Negative (Negative); PH 8.0 (5.0-9.0); Specific Gravity - Urine 1.010 (1.005-1.025)
[2025-07-23 14:20] LABS: MANUAL DIFF FLAG NO
[2025-07-23 14:28] LABS: Hematocrit 48.9 % (42.0-52.0); Hemoglobin 16.3 g/dl (14.0-18.0); Imm Gran Abs Auto 0.01 X10*3/uL (0.00-0.03); Imm Gran Pct Auto 0.2 % (0.0-0.4); Lymphocytes Absolute Auto 1.6 X10*3/uL (1.2-4.9); Mean Corpuscular HGB Conc 33.3 g/dl (31.0-36.0); Mean Corpuscular Hemoglobin 27.9 pg (27.0-33.0); Mean Corpuscular Volume 83.7 fL (80.0-98.0); NRBC Abs Auto 0.000 X10*3/uL (0.0-0.012); NRBC Pct Auto 0.0 /100WBC (0.0-0.2); Platelet Count 224 X10*3/uL (160-400); Red Blood Count 5.84 X10*6/uL (4.60-5.80); White Blood Count 4.2 X10*3/uL (4.8-10.8)
[2025-07-23 15:02] LABS: Alanine Aminotransferase 19 U/L (0-40); Albumin Level 4.9 g/dL (3.5-5.0); Alkaline Phosphatase 90 U/L (39-117); Anion Gap 12 (12-20); Aspartate Amino Transferase 26 U/L (5-37); Blood Urea Nitrogen 10 mg/dL (9-16); Calcium 10.0 mg/dL (8.4-10.2); Carbon Dioxide 31 mmol/L (22-29); Chloride 103 mmol/L (96-108); Cholesterol 129 mg/dL (<200); Estimated Glomerular Filt Rate > 60; HDL Cholesterol 36 mg/dL (>40); Magnesium 2.0 mg/dL (1.6-2.6); Potassium 4.3 mmol/L (3.3-5.1); Sodium 142 mmol/L (135-145); Total Protein 7.8 g/dL (6.5-8.0); Triglycerides 63 mg/dL (<150)
[2025-07-23 15:15] LABS: Folate 8.3 ng/mL (> or = 4.0); Vitamin B12 254 pg/mL (200-900)
[2025-07-23 15:46] LABS: Free T4 (Free Thyroxine) 1.12 ng/dL (0.71-1.85)
[2025-07-23 15:51] LABS: CT PCR Urine NOT DETECTED (Not Detect.); NG PCR Urine NOT DETECTED (Not Detect.)
[2025-07-24 08:33] LABS: HBS Num1 395.68 mIU/mL (0-7.99); HBsAGNum1 0.36 S/CO (0.00-0.99); HIV Num 1 0.07 S/CO (0.00-0.99); Hepatitis B Surface Antigen Negative (Negative); ~HepC Num1 0.18 S/CO (0.00-0.79); ~Hepatitis B Surface Antibody REACTIVE (Nonreactive); ~Hepatitis C Antibody Nonreactive (Nonreactive)
[2025-07-24 08:44] LABS: Syphilis Screen Nonreactive (Nonreactive)
== END 2025-07-23 09:22 | disposition home or self-care (01) ==
LOC: HO.HKASLDS 09:21
PROVIDERS: PCP Student in an Organized Health Care Education/Training Program; Visit Provider Student in an Organized Health Care Education/Training Program
DX: Z13.89 Encounter for screening for other disorder (principal); Z20.2 Contact with and (suspected) exposure to infections with a predominantly sexual mode of transmission; Z11.4 Encounter for screening for human immunodeficiency virus [HIV]; Z11.59 Encounter for screening for other viral diseases
CPT/HCPCS: 80053; 80061; 81003; 82306; 82607; 82746; 83036; 83735; 84439; 84443; 85025; 86706; 86780; 86803; 87340; 87389; 87491; 87591

== ENCOUNTER 2025-08-04 10:13 | Outpatient (AMB) | payer OTHER, SELFPAY ==
--- OUTSIDE RECORDS SUMMARY | 2025-08-03 22:54 | XMS_ITS | Encounter Summary ---
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 Details Date Type Department Care Team (Late st Contact Info) Description 08/03/2025 10:54 PM EST - 08/04/2025 8:53 AM EST Emergency [facility] Emergency [address] [place] [id number] Discharge Disposition: Home or Self Care Social History Tobacco Use Types Packs/Day Years Used Date Smoking Tobacco: Never Smokeless Tobacco: Never Tobacco Cessation:Counseling Given: Not Answered Alcohol Use Standard Drinks/Week Comments Never 0 (1 standard drink = 0.6 oz pur e alcohol) Sex and Gender Information Value Date Recorded Sex Assigned at Not on file Legal Sex Male 9:44 AM EST Gender Identity Not on file Sexual Orientation Not on file documented as of this encounter Last Filed Vital Signs Vital Sign Reading Time Taken Comments Blood Pressure 112/77 08/04/2025 3:52 AM EST Pulse 65 08/04/2025 3:52 AM EST Temperature 36.8 C (98.2 F) 08/04/2025 3:52 AM EST Respiratory Rate 16 08/04/2025 3:52 AM EST Oxygen Saturation 100% 08/04/2025 3:52 AM EST Inhaled Oxygen Concentration - - Weight - - Height - - Body Mass Index - - documented in this encounter Functional Status * Calculated C-SSRS Risk Score (Lifetime/Recent) Answer Date of Assessment Author No Risk Indicated 08/03/2025 11:01 PM EST Genaro Ulloa RN * Prospect Suicide Severity Rating Scale (Screener/Recent Self-Report) Question Answer Date of Assessment Author 1. Wish to be (Past 1 Month) No 12/29/2 025 11:01 PM Genaro Serrato RN 2. Non-Specific Active Suici kenneth Thoughts (Past 1 Month) No 08/03/2025 11:01 PM Kalia Serrato ph RN 6. Suicidal Behavior (Lifetime) No 11:01 PM Genaro Serrato RN documented as of this encounter Discharge Disposition Disposition Code Departure Means Destination Comment s Home or Self Care lwbs documented in this encounter Progress Notes * Genaro Ulloa RN - 08/03/2025 11:00 PM EST RLQ pain approx 2 hours ago. Denies n/v. Denies any urinary issues. 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 documented in this encounter Plan of Treatment Not on file documented as of this encounter Procedures Procedure Name Priority Date/Time Associated Diagnosis Comments CBC WITH AUTO DIFFERENTIAL STAT 08/03/2025 11:33 PM EST CBC AND DIFFERENTIAL STAT 08/03/2025 11:33 PM EST LIPASE STAT 08/03/2025 11:33 PM EST COMPREHENSIVE METABOLIC PANEL STAT 08/03/2025 11:33 PM EST documented in this encounter Results * (ABNORMAL) CBC auto differential (08/03/2025 11:33 PM EST) WBC 7.4 4.8 - 10.8 K/mcL LAB HEMETOLOGY METHOD 08/03/2025 11:42 PM EST [facility] RBC 5.70(H) 4.50 - 5.50 M/mcL LAB HEMETOLOGY METHOD 08/03/2025 11:42 PM EST [facility] Hemoglobin 16.2 13.5 - 17.5 g/dL LAB HEMETOLOGY METHOD 08/03/2025 11:42 PM [facility] Hematocrit 46.6 42.0 - 54.0 % LAB HEMETOLOGY METHOD 08/03/2025 11:42 PM [facility] MCV 81.5 79.0 - 98.0 FL LAB HEMETOLOGY METHOD 08/03/2025 11:42 PM [facility] MCH 28.3 27.0 - 32.0 pcg LAB HEMETOLOGY METHOD 08/03/2025 11:42 PM [facility] MCHC 34.8 32.0 - 37.0 g/dL LAB HEMETOLOGY METHOD 08/03/2025 11:42 PM [facility] RDW 12.8 11.0 - 15.0 % LAB HEMETOLOGY METHOD 08/03/2025 11:42 PM [facility] Platelets 215 130 - 400 K/mcL LAB HEMETOLOGY METHOD 08/03/2025 11:42 PM [facility] MPV 9.7 7.0 - 11.0 FL LAB HEMETOLOGY METHOD 08/03/2025 11:42 PM [facility] NRBC 0.0 <1.0 % LAB HEMETOLOGY METHOD 08/03/2025 11:42 PM [facility] NRBC Absolute 0.00 <0.10 K/mcL LAB HEMETOLOGY METHOD 08/03/2025 11:42 PM [facility] Neutrophils Relative 63.9 % LAB HEMETOLOGY METHOD 08/03/2025 11:42 PM [facility] Lymphocytes Relative 30.6 % LAB HEMETOLOGY METHOD 08/03/2025 11:42 PM [facility] Monocytes Relative 4.8 % LAB HEMETOLOGY METHOD 08/03/2025 11:42 PM [facility] Eosinophils Relative 0.3 % LAB HEMETOLOGY METHOD 08/03/2025 11:42 PM EST [facility] Basophils Relative 0.3 % LAB HEMETOLOGY METHOD 08/03/2025 11:42 PM EST [facility] Immature Granulocytes Relative 0.1 % LAB HEMETOLOGY METHOD 08/03/2025 11:42 PM EST [facility] Neutrophils Absolute 4.71 1.50 - 7.00 K/mcL LAB HEMETOLOGY METHOD 08/03/2025 11:42 PM EST [facility] Lymphocytes Absolute 2.25 1.00 - 5.00 K/mcL LAB HEMETOLOGY METHOD 08/03/2025 11:42 PM EST [facility] Monocytes Absolute 0.35 0.20 - 1.00 K/mcL LAB HEMETOLOGY METHOD 08/03/2025 11:42 PM EST [facility] Eosinophils Absolute 0.02 0.00 - 0.50 K/mcL LAB HEMETOLOGY METHOD 08/03/2025 11:42 PM EST [facility] Basophils Absolute 0.02 0.00 - 0.20 K/mcL LAB HEMETOLOGY METHOD 08/03/2025 11:42 PM EST [facility] Immature Granulocytes Absolute 0.01 0.00 - 0.03 K/mcL LAB HEMETOLOGY METHOD 08/03/2025 11:42 PM [facility] Blood Venous blood specimen / Unknown Venipuncture / Unknown 08/03/2025 11:33 PM EST 08/03/2025 11:37 PM EST us Luana Hood NP LAB BLOOD ORDERABLES Ayesha pepe Result [facility] [address] [place] [address], * Lipase (08/03/2025 11:33 PM EST) Lipase 35 12 - 53 unit/L 08/04/2025 12:06 AM [facility] Blood Venous blood specimen / Unknown Venipuncture / Unknown 08/03/2025 11:33 PM EST 08/03/2025 11:37 PM EST us Luana Hood MECHANICAL ORDNANCE ASSEMBLER LAB BLOOD ORDERABLES Ayesha l Result [facility] [address] [place] [address], [place] [phone] * (ABNORMAL) Comprehensive metabolic panel (08/03/2025 11:33 PM EST) Pathologist [facility] Sodium 139 133 - 145 mmol/L 08/04/2025 12:06 AM [facility] Potassium 4.1 3.5 - 5.5 mmol/L 08/04/2025 12:06 AM [facility] Chloride 101 96 - 110 mmol/L 08/04/2025 12:06 AM [facility] CO2 30 21 - 32 mmol/L 08/04/2025 12:06 AM [facility] Anion Gap 8 3 - 11 08/04/2025 12:06 AM [facility] Glucose 104(H) 70 - 100 mg/dL 08/04/2025 12:06 AM [facility] BUN 7 5 - 25 mg/dL 08/04/2025 12:06 AM [facility] Creatinine 0.96 0.70 - 1.30 mg/dL 08/04/2025 12:06 AM [facility] eGFR 116 >=60 mL/min/1. 73m2 08/04/2025 12:06 AM [facility] Comment:Calculation based on the Chronic Kidney Disease Epidemiology Collaboration (CKD-EPI) equation refit without adjustment for race. BUN/Creatinine Ratio 7.3 08/04/2025 12:06 AM [facility] Calcium 9.1 8.5 - 10.5 mg/dL 08/04/2025 12:06 AM [facility] AST (SGOT) 19 10 - 42 unit/L 08/04/2025 12:06 AM [facility] ALT (SGPT) 18 10 - 60 unit/L 08/04/2025 12:06 AM [facility] Alkaline Phosphatase 101 42 - 121 unit/L 08/04/2025 12:06 AM [facility] Total Protein 7.3 6.0 - 8.0 g/dL 08/04/2025 12:06 AM [facility] Albumin 4.4 3.2 - 5.0 g/dL 08/04/2025 12:06 AM [facility] Total Bilirubin 1.0 0.0 - 1.4 mg/dL 08/04/2025 12:06 AM [facility] Blood Venous blood specimen / Unknown Venipuncture / Unknown 08/03/2025 11:33 PM EST 08/03/2025 11:37 PM EST us Luana Hood MECHANICAL ORDNANCE ASSEMBLER LAB BLOOD ORDERABLES Ayesha l Result [facility] [address] [place] [address], documented in this encounter Visit Diagnoses Not on filedocumented in this encounter Care Teams Bed And Breakfast Innkeeper Relationship Specialty Start Date End Date Elijah Park MD [facility] [place] [address] PCP - General Family Medicine 08/04/25 documented as of this encounter
[2025-08-04 10:14] VITALS: BP 102/68; PULSE 59; RESP 18; TEMP 36.3; O2SAT 98; BMI 19.6
--- NOTE | 2025-08-04 10:14 | MHC.OFFWIV ---
Intake Vital Signs 08/04/25 10:14 Height 6 ft 2 in Weight 153 lb BMI 19.6 BP 102/68 Blood Pressure Location Lt brachial Position Sitting Respiration 18 Pulse 59 Pulse Source Pulse Oximeter Temp 97.4 F Temp Source Oral Pulse Oximetry (%) 98 Oxygen Delivery Method Room Air Intake Visit Reasons: EP - Stomach Pain Intake Note: EP complains of abdomen pain on his right iliac region started yesterday 5 pm. Patient Tobacco Use Status: Never used Tobacco Allergies Penicillins Allergy (Severe, Verified 08/04/25 10:26) Shortness of Breath Do you need a note to return to daycare/school/sports/work: No HPI HPI Comments History of Present Illness Details History of Present Illness The patient is a 19 year old male presenting with his mother for right lower quadrant abdominal pain. Abdominal pain: - The patient reports a sudden onset of abdominal pain yesterday while playing video games - The pain is located in the right lower quadrant - Patient reports that he went to [facility] yesterday, however left without being seen due to long wait times. - After leaving the hospital, patient reports his symptoms improved minimally, allowing him to walk without a limp, but then returned. - The pain currently rated a 7-8 on a 10-point scale, however patient reports that the pain can get worse where he is hunched over and holding his abdomen due to severity of pain. - He has not taken any medications for the pain. - The patient reports a good appetite and denies any nausea, vomiting, diarrhea, or constipation. His last bowel movement was yesterday without any blood in the stool. - Patient was previously seen by his PCP for generalized abdominal pain, however patient reports that pain was significantly different at that time. - He denies any prior abdominal surgeries. He has his appendix. - He denies any trouble urinating. He denies any testicular pain. Review of Systems - Constitutional: Denies fevers or chills. - Gastrointestinal: Reports right lower quadrant abdominal pain. Denies nausea, vomiting, diarrhea, constipation, or blood in stool. - Genitourinary: Denies dysuria, hematuria, testicular pain, or scrotal pain. Physical Exam General Appearance: Normal appearance, well developed. No acute distress Head: Normocephalic, atraumatic Pulmonary: No respiratory distress. Speaking in full sentences Abdomen: Normal bowel sounds. Abdomen soft with TTP overlying the RLQ along [place]Burneys point. Guarding present. Negative rebound and rovsings. Musculoskeletal: Moving all extremities spontaneously and against gravity Mental Status: Alert and Oriented x 3 Psychiatric: Normal mood. Normal affect. [facility] Medical History (Updated 07/21/25 @ 12:55 by Elijah Park MD) Hookah pipe smoker Weakness of both arms Numbness of upper extremity Diarrhea Abdominal pain Convulsion Depression Anxiety Surgical History H/O rhinoplasty Social History (Updated 07/21/25 @ 11:05 by Wes Harvey CMA) Housing: House Alcohol intake: never Patient Tobacco Use Status: Never used Tobacco e-Cigarette/Vaping Use: Currently Using Second Hand Smoke Exposure: No service: No Current occupational status: unemployed Current occupational exposures/hazards: No Cognitive needs: No Hearing needs: No Vision needs: No Physical Exam Vital Signs: Last Vital Signs Temp 97.4 F 08/04/25 10:14 Pulse 59 08/04/25 10:14 Resp 18 08/04/25 10:14 BP 102/68 08/04/25 10:14 Pulse Ox 98 08/04/25 10:14 Oxygen Delivery Method Room Air 08/04/25 10:14 BMI result Body Mass Index 19.6 Assessment & Plan Assessment & Plan (1) Right lower quadrant abdominal pain: Code(s): R10.31 - Right lower quadrant pain Plan - The patient is a 19-year-old male with acute right lower quadrant abdominal pain. - Physical exam findings of localized tenderness and guarding in the RLQ concerning for acute appendicitis. - Stat imaging recommended to r/o appendicitis - Discussed recommendation with patient and patients mother. They will go to [facility] for further evaluation - Report given to [facility] Patient was informed and verbally consented to the use of an ambient scribe for clinic note documentation during the visit. Coding Level of Care Code Est Pt Level 3 (79923) Diagnoses Right lower quadrant abdominal pain R10.31
--- OUTSIDE RECORDS SUMMARY | 2025-08-04 13:31 | XMS_ITS | Encounter Summary ---
Author Organization [facility] Address [address] [place] [phone] Phone Care Team Providers Care Advertising Inserter Name Role Phone Rosina Church MD Primary Care Prov ider Reason for Visit * Reason Comments Med Refill Encounter Details Date Type Department Care Team ([facility] st Contact Info) Description 03/18/2023 Refill [facility] [address] [phone] Rosina Church MD [address] [address] Seasonal allergic rhinitis, unspecified trigger Social History [...] trigger documented in this encounter Care Teams Advertising Inserter Relationship Specialty Start Date End Date Rosina Church MD PCP - General Pediatrics 08/22/22 03/18/23 documented as of this encounter
--- OUTSIDE RECORDS SUMMARY | 2025-08-04 13:31 | XMS_ITS | Clinical Summary ---
Author Organization [facility] Address [address] [place] [address] Phone Care Team Providers Care [facility] Office Supervisor Name Role Phone Unavailable Primary Care [...] mom stating that Rupal is continually receiving usp, he doesn't want to go to school [...] language to fit in which he receives usp for. She stated that he is receiving all services documented in his IEP. She stated that they have created a small lunch group for Rupal with other students to increase his social skills. She stated that Samer is not a behavioral problem. I called mom to let her know about my conversation with the principal. Mom stated that Rupal says he gets usp for doing nothing. I suggested that mom request a meeting with all of Rupal's teachers. 10/29/18- I received a call from mom stating that Rupal ran out of the school building today and she had to pick him up. She stated that she doesn't know what to do about him. She stated that he doesn't like going to school and always gets usp. 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 [facility] Assessment & Plan (04/17/2019 7:48 [...] t he electric, gas, oil, or water [employer] threatened to shut off your services in [...]
--- OUTSIDE RECORDS SUMMARY | 2025-08-04 13:31 | XMS_ITS | Encounter Summary ---
Author Organization [facility] Address [address] [place] [phone] Phone Care Team Providers Care Third Miller Name Role Phone Rosina Church MD Primary Care Prov ider Encounter Details Date Type Department Care Team (Late st Contact Info) Description 10/04/2017 Conversion Encounter [facility] [address] [phone] Rosina Charles MD [address] [address] Social History Tobacco Use Types Packs/Day Years [...] on filedocumented in this encounter Care Teams Third Miller Relationship Specialty Start Date End Date Rosina Church MD PCP - General Pediatrics 08/22/22 03/18/23 documented as of this encounter
--- OUTSIDE RECORDS SUMMARY | 2025-08-04 13:31 | XMS_ITS | Encounter Summary ---
Author Organization [facility] Address [address] [place] [phone] Phone Care Team Providers Care Cma Or Lpn Name Role Phone Rosina Church MD Primary Care Prov ider Reason for Visit * Reason Comments Med Refill Encounter Details Date Type Department Care Team (Late st Contact Info) Description 09/18/2022 Refill [facility] [address] [phone] Rosina Church MD [address] [phone] Seasonal allergic rhinitis, unspecified trigger Social History [...] trigger documented in this encounter Care Teams Cma Or Lpn Relationship Specialty Start Date End Date Rosina Church MD PCP - General Pediatrics 08/22/22 03/18/23 documented as of this encounter
--- OUTSIDE RECORDS SUMMARY | 2025-08-04 13:31 | XMS_ITS | Encounter Summary ---
Author Organization [facility] Address [address] [place] [address] Phone Care Team Providers Care Pharmaceutical Engineer Name Role Phone Rosina Church MD Primary Care Prov ider Reason for Visit * Reason Comments Med Refill Encounter Details Date Type Department Care Team (Late st Contact Info) Description 04/01/2020 Refill [facility] [address] [phone] Rosina Church MD [address] [phone] Seasonal allergic rhinitis, unspecified trigger Social History [...] trigger documented in this encounter Care Teams Pharmaceutical Engineer Relationship Specialty Start Date End Date Rosina Church MD PCP - General Pediatrics 08/22/22 03/18/23 documented as of this encounter
--- OUTSIDE RECORDS SUMMARY | 2025-08-04 13:31 | XMS_ITS | Clinical Summary ---
Author Organization [facility] Address [address] [facility] [address] [place] [phone] Phone Care Team Providers Care Steward/Stewardess [employer] Name Role Phone Rosina Church MD Primary [...] 11/25/2015 Medical Devices Not on file Insurance elicit [facility] CH[employer] CHILDR[employer] [facility] [employer]CO Care Teams Steward/Stewardess Club Car Relationship Specialty Start Date End Date Rosina Church MD [address] [place] [phone] PCP - General Adolescent Medicine 07/17/18 Additional Source Comments The information contained in this document represents components of the legal health record. It is not the complete legal health record.[facility]
--- OUTSIDE RECORDS SUMMARY | 2025-08-04 13:31 | XMS_ITS | Encounter Summary ---
Author Organization [facility] Address [address] [place] [address] Phone Care Team Providers Care Roof Foreman Name Role Phone Rosina Church MD Primary Care Prov ider Encounter Details Date Type Department Care Team (Late st Contact Info) Description 03/22/2017 Conversion Encounter [facility] - [address] [phone] Social History Tobacco Use Types Packs/Day Years [...] on filedocumented in this encounter Care Teams Roof Foreman Relationship Specialty Start Date End Date Rosina Church MD PCP - General Pediatrics 08/22/22 03/18/23 documented as of this encounter
--- OUTSIDE RECORDS SUMMARY | 2025-08-04 13:32 | XMS_ITS | Clinical Summary ---
Author Organization [facility] Address [address] [place] [address] Phone Care Team Providers Care Straightener And Aligner Name Role Phone Elijah Park MD Primary Care Provider [phone] Allergies Active Allergy Reactions Criticality Noted Date Comments Penicillins Anaphylaxis High 08/03/2025 Encounters Date Type Department Care Team Description 08/03/2025 10:54 PM EST - 08/04/2025 8:[address] [facility] [address] [place] [address] Discharge Disposition: Home or Self Care from Last 3 Months Surgical History Surgery Date Site/Laterality Comments RHINOPLASTY Medical History Medical History Date Comments Anxiety Seizures (CMS/HCC V24, CMS/HCC V28) Social History Tobacco Use Types Packs/Day Years [...] - - Body Mass Index - - Plan of Treatment Health Maintenance Due Date Last Done Comments Meningococcal B Vaccine (1 of 2 - Standard) 2020 HIV Screening 07/04/2022 Hepatitis C Screening 07/04/2022 Social Influencers of Health Screening 07/04/2022 Annual Well Child Visit (3-21 years old) 05/04/2023 05/04/2022, 03/24/2021, 03/23/2020, Additional history exists Depression Screening 08/06/2024 COVID-19 Vaccine (3 - 2024- season) 2025 01/13/2021, 12/23/2020 Influenza Vaccine (#1) 2025 07/18/2021, 2019 DTaP,Tdap,and Td Vaccines (8 - Td or Tdap) 06/19/2031 06/19/2021, 02/22/2017, 04/28/2014, Additional history exists RSV Immunization Adult Patients (1 - 1-dose 75+ series) 2079 Pneumococcal Vaccine: Pediatrics (0 to 5 Years) and At-Risk Patients (6 to 49 Years) Aged Out 2004, 2004 No longer eligibl [...] Completed 04/28/2014, 05/10/2013 HPV Vaccines Completed 12/14/2016, 11/25/2015 Meningococcal ACWY Vaccine Completed 03/24/2021, RSV Immunization Patients Under 20 months Aged Out No longer eligible based on patient's age to complete this topic Procedures Procedure Name Priority Date/Time Associated Diagnosis Comments CBC WITH AUTO DIFFERENTIAL STAT 08/03/2025 11:33 PM EST LIPASE STAT 08/03/2025 11:33 PM EST COMPREHENSIVE METABOLIC PANEL STAT 08/03/2025 11:33 PM EST CBC AND DIFFERENTIAL STAT 08/03/2025 11:33 PM EST from Last 3 Months Results * (ABNORMAL) CBC auto differential (08/03/2025 11:33 PM EST) [facility] WBC 7.4 4.8 - 10.8 K/mcL LAB HEMETOLOGY METHOD 08/03/2025 11:42 PM [facility] RBC 5.70(H) 4.50 - 5.50 M/mcL LAB HEMETOLOGY METHOD 08/03/2025 11:42 PM [facility] Hemoglobin 16.2 13.5 - 17.5 g/dL LAB HEMETOLOGY METHOD 08/03/2025 11:42 PM [facility] Hematocrit 46.6 42.0 - 54.0 % LAB HEMETOLOGY METHOD 08/03/2025 11:42 PM [facility] MCV 81.5 79.0 - 98.0 FL LAB HEMETOLOGY METHOD 08/03/2025 11:42 PM [facility] MCH 28.3 27.0 - 32.0 pcg LAB HEMETOLOGY METHOD 08/03/2025 11:42 PM [facility] MCHC 34.8 32.0 - 37.0 g/dL LAB HEMETOLOGY METHOD 08/03/2025 11:42 PM [facility] RDW 12.8 11.0 - 15.0 % LAB HEMETOLOGY METHOD 08/03/2025 11:42 PM [facility] Platelets 215 130 - 400 K/mcL LAB HEMETOLOGY METHOD 08/03/2025 11:42 PM [facility] MPV 9.7 7.0 - 11.0 FL LAB HEMETOLOGY METHOD 08/03/2025 11:42 PM [facility] NRBC 0.0 <1.0 % LAB HEMETOLOGY METHOD 08/03/2025 11:42 PM [facility] NRBC Absolute 0.00 <0.10 K/mcL LAB HEMETOLOGY METHOD 08/03/2025 11:42 PM [facility] Neutrophils Relative 63.9 % LAB HEMETOLOGY METHOD 08/03/2025 11:42 PM [facility] Lymphocytes Relative 30.6 % LAB HEMETOLOGY METHOD 08/03/2025 11:42 PM [facility] Monocytes Relative 4.8 % LAB HEMETOLOGY METHOD 08/03/2025 11:42 PM [facility] Eosinophils Relative 0.3 % LAB HEMETOLOGY METHOD 08/03/2025 11:42 PM [facility] Basophils Relative 0.3 % LAB HEMETOLOGY METHOD 08/03/2025 11:42 PM [facility] Immature Granulocytes Relative 0.1 % LAB HEMETOLOGY METHOD 08/03/2025 11:42 PM [facility] Neutrophils Absolute 4.71 1.50 - 7.00 K/mcL LAB HEMETOLOGY METHOD 08/03/2025 11:42 PM [facility] Lymphocytes Absolute 2.25 1.00 - 5.00 K/mcL LAB HEMETOLOGY METHOD 08/03/2025 11:42 PM [facility] Monocytes Absolute 0.35 0.20 - 1.00 K/mcL LAB HEMETOLOGY METHOD 08/03/2025 11:42 PM [facility] Eosinophils Absolute 0.02 0.00 - 0.50 K/mcL LAB HEMETOLOGY METHOD 08/03/2025 11:42 PM [facility] Basophils Absolute 0.02 0.00 - 0.20 K/mcL LAB HEMETOLOGY METHOD 08/03/2025 11:42 PM [facility] Immature Granulocytes Absolute 0.01 0.00 - 0.03 K/mcL LAB HEMETOLOGY METHOD 08/03/2025 11:42 PM EST [facility] Blood Venous blood specimen / Unknown Venipuncture / Unknown 08/03/2025 11:33 PM EST 08/03/2025 11:37 PM EST Luana Hood COMBAT CONTROL MANAGER LAB BLOOD ORDERABLES Ayesha l Result Performing Organization Address City/[facility]/ZIP Co de Phone Number [facility] [address] [place] [address], [place] [phone] * Lipase (08/03/2025 11:33 PM EST) Pathologist [facility] Lipase 35 12 - 53 unit/L 08/04/2025 12:06 AM [facility] Blood Venous blood specimen / Unknown Venipuncture / Unknown 08/03/2025 11:33 PM EST 08/03/2025 11:37 PM EST Luana Hood COMBAT CONTROL MANAGER LAB BLOOD ORDERABLES Ayesha l Result Performing Organization Address City/[facility]/ZIP Co de Phone Number [facility] [address] [place] [address], [place] [phone] * (ABNORMAL) Comprehensive metabolic panel (08/03/2025 11:33 PM EST) Sodium 139 133 - 145 mmol/L 08/04/2025 12:06 AM [facility] Potassium 4.1 3.5 - 5.5 mmol/L 08/04/2025 12:06 AM [facility] Chloride 101 96 - 110 mmol/L 08/04/2025 12:06 AM [facility] CO2 30 21 - 32 mmol/L 08/04/2025 12:06 AM [facility] Anion Gap 8 3 - 11 08/04/2025 12:06 AM [facility] Glucose 104(H) 70 - 100 mg/dL 08/04/2025 12:06 AM [facility] BUN 7 5 - 25 mg/dL 08/04/2025 12:06 AM [facility] Creatinine 0.96 0.70 - 1.30 mg/dL 08/04/2025 12:06 AM [facility] eGFR 116 >=60 mL/min/1. 73m2 08/04/2025 12:06 AM [facility] Comment:Calculation based on the Chronic Kidney Disease Epidemiology Collaboration (CKD-EPI) equation refit without adjustment for race. BUN/Creatinine Ratio 7.3 08/04/2025 12:06 AM [facility] Calcium 9.1 8.5 - 10.5 mg/dL 08/04/2025 12:06 AM [facility] AST (SGOT) 19 10 - 42 unit/L 08/04/2025 12:06 AM [facility] ALT (SGPT) 18 10 - 60 unit/L 08/04/2025 12:06 AM [facility] Alkaline Phosphatase 101 42 - 121 unit/L 08/04/2025 12:06 AM [facility] Total Protein 7.3 6.0 - 8.0 g/dL 08/04/2025 12:06 AM [facility] Albumin 4.4 3.2 - 5.0 g/dL 08/04/2025 12:06 AM [facility] Total Bilirubin 1.0 0.0 - 1.4 mg/dL 08/04/2025 12:06 AM [facility] Blood Venous blood specimen / Unknown Venipuncture / Unknown 08/03/2025 11:33 PM EST 08/03/2025 11:37 PM EST us Luana Lee [place] COMBAT CONTROL MANAGER LAB BLOOD ORDERABLES Ayesha cantu Result [facility] [address] [place] [address], from Last 3 Months Insurance [facility] [employer] Care Teams Straightener And Aligner Relationship Specialty Start Date End Date Elijah Park MD [address] [place] [id number] PCP - General Family Medicine 08/04/25
--- OUTSIDE RECORDS SUMMARY | 2025-08-04 13:32 | XMS_ITS | Encounter Summary ---
Author Organization [facility] Address [address] [place] [address] Phone Care Team Providers Care Demurrage Man Name Role Phone Rosina Church MD Primary Care Prov ider Encounter Details Date Type Department Care Team (Latest Contact Info) Description 11/06/[address] [facility] Social History Tobacco Use Types Packs/Day Years [...] of this encounter ED Notes * DOCUMENTS, [facility] - 11/06/2018 9:[address] [facility] EDM *LIVE* ED Physician Documentation Summary Report Patient: RUPAL ARCEO 13/M Service Date: 11/06/18 Account: [id number] : 2005 Service Time: 0950 PCP: [facility] MR#: [id number] HPI General Chief Complaint: Extremity Complaint/Injury Stated [...] Xray Interpreted By Me: No Xray Comment [facility] Diagnostic Imaging Department [address] [place] [id number] Patient: RUPAL ARCEO /Age/Sex: 2005 - 13 - M Unit#: [id number] Location/Status: SPER/REG ER Mnemonic/Ordering Site: ELBOWLT/SPMAIN Ordering Physician: DEEPAK HANSON CR Elbow LT Min 3 Views - 04/03/19 - 1004 HISTORY: Left elbow pain after fall. FINDINGS: 3 views left elbow demonstrate no fracture, dislocation, or significant joint effusion. There is normal bone mineralization. Soft tissues are unremarkable. Normal appearance of the growth plates. IMPRESSION: No fracture. [id number] Dictating Physician: VICTORINO STERLING MD Electronically Signed by: VICTORINO STERLING MD Dic Date/Time: 11/06/18 1009 Sign date/Time: 11/06/18 1010 Departure Diagnosis: fall, left elbow injury Disposition: HOME WITH CAREGIVER Condition: Stable Patient Instructions: Elbow Sprain (ED) Additional Instructions: Call the retail branch manager today to make a follow-up appointment for next week. Ice the area 3-4 times daily for 15-20 minutes. Wear the sling during the day for the next 48 hours. Take the sling off over the weekend. Take the prescribed ibuprofen 600 mg every 6 hours as needed for pain. Thank you for coming to the [facility] Emergency Department today. Our entire team works [...] require a referral, a follow- up doctor environmental maintenance worker for the emergency department will be provided [...] on filedocumented in this encounter Care Teams Demurrage Man Relationship Specialty Start Date End Date Rosina Church MD PCP - General Pediatrics 08/22/22 03/18/23 documented as of this encounter
--- OUTSIDE RECORDS SUMMARY | 2025-08-04 13:32 | XMS_ITS | Encounter Summary ---
Author Organization [facility] Address [address] [place] [address] Phone Care Team Providers Care Fiscal Agent Name Role Phone Rosina Church MD Primary Care Prov ider Reason for Visit * Reason Comments Med Refill Encounter Details Date Type Department Care Team (Late st Contact Info) Description 04/06/2020 Refill [facility] [address] [phone] Rosina Church MD [address] [address] Seasonal allergic rhinitis, unspecified trigger Social History [...] trigger documented in this encounter Care Teams Fiscal Agent Relationship Specialty Start Date End Date Rosina Church MD PCP - General Pediatrics 08/22/22 03/18/23 documented as of this encounter
--- OUTSIDE RECORDS SUMMARY | 2025-08-04 13:32 | XMS_ITS | Encounter Summary ---
Author Organization [facility] Address [address] [place] [phone] Phone Care Team Providers Care Counseling Services Director Name Role Phone Rosina Church MD Primary Care Prov ider Reason for Visit * Reason Comments Med Refill Encounter Details Date Type Department Care Team (Late st Contact Info) Description 02/21/2022 Refill [facility] [address] [phone] Rosina Church MD [address] [phone] Seasonal allergic rhinitis due to pollen Social [...] pollen documented in this encounter Care Teams Counseling Services Director Relationship Specialty Start Date End Date Rosina Church MD PCP - General Pediatrics 08/22/22 03/18/23 documented as of this encounter
== END 2025-08-04 11:22 | disposition home or self-care (01) ==
LOC: HO.HMCWIS 10:13
PROVIDERS: PCP Student in an Organized Health Care Education/Training Program; Visit Provider Family Medicine
DX: R10.31 Right lower quadrant pain (principal)

== ENCOUNTER 2025-08-04 11:21 | Emergency (ER) | payer OTHER, SELFPAY ==
--- NOTE | 2025-08-04 | ECG_ITS ---
Test Reason : BRADYCARDIA Blood Pressure : */* mmHG Vent. Rate : 50 BPM Atrial Rate : 50 BPM P-R Int : 154 ms QRS Dur : 94 ms QT Int : 400 ms P-R-T Axes : 76 88 61 degrees QTcB Int : 364 ms Sinus bradycardia Otherwise normal ECG No previous ECGs available Referred By: Shalini Danielson Electronically Signed By: VINOD DORANTES
--- NOTE | ~2025-08-04 | CT_ITS ---
EXAMINATION: CT ABDOMEN PELVIS WITH IV CONTRAST HISTORY: RLQ abd pain COMPARISON: There are no prior studies for available comparison. TECHNIQUE: CT scan of the abdomen and pelvis was performed following administration of 85 mL Omnipaque 350 using standard departmental protocol. Coronal and sagittal reformatted images were generated and reviewed. This CT exam was performed with one or more of the following dose reduction techniques: automated exposure control, adjustment of the mA and/or kV according to patient size, use of iterative reconstruction technique. DLP: 392 mGy-cm FINDINGS: LOWER CHEST: The visualized lung bases are clear. There is no pleural effusion. CARDIOVASCULATURE: The heart is normal in size. There is no pericardial effusion. LIVER: The liver is normal in size and contour. No liver mass is identified. The hepatic and portal veins are patent. GALLBLADDER / BILE DUCTS: The gallbladder is unremarkable. There is no intra or extrahepatic biliary ductal dilatation. SPLEEN: The spleen is normal in size. No focal splenic lesion is identified. PANCREAS: The pancreas is unremarkable in appearance. ADRENAL GLANDS: Within normal limits. KIDNEYS/RETROPERITONEUM: No renal calculi are identified. There is no hydronephrosis. No renal masses are identified. LYMPH NODES: No abdominal or pelvic lymphadenopathy. VASCULATURE: The abdominal aorta is normal in caliber. MESENTERY/PERITONEUM: No free fluid. No masses. There is no free intraperitoneal gas. STOMACH: Normal SMALL BOWEL: The small bowel is normal in caliber. COLON: Mild wall thickening of the colon and stranding of the fat suggestive of mild colitis. This is greatest involving the distal right, transverse and left colon. Increased stool in the colon suggestive of mild constipation. No dilated loops of bowel to suggest obstruction. The cecum is located low in the pelvis. APPENDIX: Not definitely seen. No inflammatory changes to suggest acute appendicitis. URINARY BLADDER/PELVIC ORGANS: The urinary bladder is not optimally distended. The prostate gland does not appear enlarged. BONES / SOFT TISSUES: No suspicious bony or soft tissue abnormalities. CT/CT abdomen pelvis w IV con IMPRESSION: Mild colitis of the colon and constipation. Electronically signed by: Kerry Domingo MD 08/04/2025 04:21 PM [facility]
[2025-08-04 12:15] VITALS: BP 123/60; PULSE 53; RESP 16; TEMP 36.4; O2SAT 99; BMI 19.2
--- NOTE | 2025-08-04 12:16 | ED_ITS ---
HPI - Abdominal Pain General Chief Complaint: Abdominal Pain Stated Complaint: appendicitis? sent by Time Seen by Provider: 08/04/25 13:35 Source: patient and family (mom) Mode of arrival: ambulatory Limitations: no limitations History of Present Illness ED Provider: SHALINI DANIELSON PA-C HPI narrative: 19-year-old male presents to the ED today for evaluation of acute onset right lower quadrant abdominal pain which began around 1800 last night. He states he sat down to play video games when he had a sudden sharp 10/10 pain to his right lower quadrant. No radiation of pain. Pain has been constant, waxing and waning in severity since onset. He has not trialed anything at home for the pain. Reports initial nausea without vomiting, no nausea at present. Denies diarrhea, constipation, urinary symptoms, testicular or penile pain. Patient states he presented to both [facility] and [facility] for evaluation last night however left due to long wait times. Denies hx of prior abdominal surgeries. Related Data Home Medications ?Medication ?Instructions ?Recorded ?Confirmed hydroxyzine pamoate 25 mg capsule 25 mg PO BID PRN sertraline 100 mg tablet 100 mg PO QAM 07/21/25 Previous Rx's ?Medication ?Instructions ?Recorded dicyclomine 10 mg capsule 10 mg PO TID PRN abdominal p ain 08/04/25 #20 caps magnesium citrate 300 ml PO DAILY PRN constipa tion 08/04/25 #296 mL ondansetron 4 mg disintegrating 4 mg PO Q8H PRN nausea and 08/04/25 tablet vomiting #14 tabs sennosides 8.6 mg tablet (senna) 8.6 mg PO DAILY 14 da ys #14 tabs 08/04/25 Allergies Allergy/AdvReac Type Severity Reaction Status Date / Time Penicillins Allergy Severe Shortness Verified 08/04/25 12:17 of Breath Review of Systems Review of Systems Yes all other systems are reviewed and are negative PMFSH Past Medical History Attestation statement: The following information was validated with the patient. Source: old records reviewed and nursing notes reviewed Medical History Hookah pipe smoker Weakness of both arms Numbness of upper extremity Diarrhea Abdominal pain Convulsion Depression Anxiety Surgical History H/O rhinoplasty Social History Social History Housing: House Unable to assess alcohol history related to: Unknown Alcohol intake: never Patient Tobacco Use Status: Never used Tobacco e-Cigarette/Vaping Use: Currently Using Second Hand Smoke Exposure: No Use of substances other than those prescribed or required for medical reasons: Unknown Advance Directives: No Advance Directives Information Provided: Yes service: No Current occupational status: unemployed Current occupational exposures/hazards: No Cognitive needs: No Hearing needs: No Vision needs: No Physical Exam ED Vital Signs: Vital Signs - 24 hr 08/04/25 12:15 08/04/25 16:42 Temperature 97.5 F 97.5 F Pulse Rate 53 53 Respiratory Rate 16 16 Blood Pressure 123/60 123/60 Pulse Oximetry 99 99 Oxygen Delivery Method Room Air Room Air BMI result Body Mass Index 19.2 vital signs stable General: Well appearing, in no acute distress. Skin: Warm, dry, intact. No rashes or lesions. Head: Normocephalic, atraumatic. EENT: Hearing is intact b/l. Conjunctiva clear. PERRLA. EOM intact. Moist mucous membranes.? Neck: Supple without LAD Cardiac: Chest wall symmetric. RRR Lungs: Normal respiratory effort without accessory muscle use. CTA bilaterally. No rales, rhonchi, or wheezes.? Abdomen: Soft, nondistended, tender to palpation of right lower quadrant with guarding. No rebound. Active bowel sounds x4. No CVAT. Ext: Upper and lower extremities atraumatic, without tenderness, deformity, swelling or erythema Neuro: AOx3. Normal speech. Ambulating with steady gait. Course Course Course Narrative: This is a Rapid Medical Exam performed in triage by Roya Delgadillo PA-C. Full HPI, ROS and PE to be performed by primary ED provider. 19 yo M w/pmhx anxiety, depression presenting to the ED c/o RLQ abd pain x1 mos - sent in from for r/o appy. Went to [facility] but LWCT due to wait time. PE: abdomen soft w/right upper quadrant and right lower quadrant tenderness. Guarding. Plan: Labs, UA 1500 -- cbc without leukocytosis or left shift. no anemia, h&h stable. chemistry without acute electrolyte abnormality requiring intervention. no yogi. liver function wnl. ct pending. > medicated w/ IVF and toradol > signout given to dr. francisco pending imaging and dispo. 2:20 PM 08/04/2025 (Sandrine Francisco DO): Patient is signed out to me pending CT imaging for appendicitis rule out. 4:36 PM 08/04/2025 (Sandrine Kevon Francisco ): CT imaging did not show any signs of appendicitis. Did show signs of colitis with constipation. We will plan to prescribe patient a bowel regimen. Patient will be discharged with a close outpatient follow up. No signs of appendicitis on CT imaging Medical Decision Making Medical Decision Making [facility] Narrative: 19-year-old male presents to the ED today for evaluation of acute onset right lower quadrant abdominal pain which began around 1800 last night. Differential diagnoses: appendicitis, UTI, constipation Abdominal exam without peritoneal signs. No evidence of acute abdomen at this time. Well appearing. Low suspicion for acute hepatobiliary disease (including acute cholecystitis), acute infectious processes (pneumonia, hepatitis, pyelonephritis), vascular catastrophe, bowel obstruction or viscus perforation, testicular torsion, orchitis, epidydymitis. Presentation not consistent with other acute, emergent causes of abdominal pain at this time. Plan: labs, UA, CT AP, pain control, fluids, serial reassessment Differential Diagnosis Differential Diagnoses: The differential diagnosis associated with the presentation includes as above. Admission/Observation Not indicated Lab Data [facility] Lab Attestation statement: I reviewed the patient's lab results. As above 08/04/25 13:11 08/04/25 13:11 Labs: Lab Results 08/04/25 08/04/25 Range/Units 13:11 14:08 WBC 5.2 (4.8-10.8) X10*3/uL RBC 5.59 (4.60-5.80) X10*6/uL Hgb 15.6 (14.0-18.0) g/dl Hct 45.9 (42.0-52.0) % MCV 82.1 (80.0-98.0) fL MCH 27.9 (27.0-33.0) pg MCHC 34.0 (31.0-36.0) g/dl RDW 12.9 (11.0-16.0) % Plt Count 178 (160-400) X10*3/uL MPV 9.6 (9.4-12.4) fL Immature Gran % (Auto) 0.2 (0.0-0.4) % Neut % (Auto) 47.9 (45-73) % Lymph % (Auto) 43.1 H (20-40) % [place] % (Auto) 7.6 (2-11) % Eos % (Auto) 0.8 (0-4) % Baso % (Auto) 0.4 (0-2) % Lymph # (Auto) 2.3 (1.2-4.9) X10*3/uL [place] # (Auto) 0.4 (0.1-1.2) X10*3/uL Eos # (Auto) 0.0 (0.0-0.4) X10*3/uL Baso # (Auto) 0.0 (0.0-0.2) X10*3/uL Abs Immat Gran (auto) 0.01 (0.00-0.03) X10*3/uL Absolute Neuts (auto) 2.5 (2.0-8.3) x10*3/uL Absolute Nucleated RBC 0.000 (0.0-0.012) X10*3/uL Nucleated RBC % (auto) 0.0 (0.0-0.2) /100WBC Sodium 141 (135-145) mmol/L Potassium 3.9 (3.3-5.1) mmol/L Chloride 107 (96-108) mmol/L Carbon Dioxide 30 H (22-29) mmol/L Anion Gap 8 L (12-20) BUN 8 L (9-16) mg/dL Creatinine 0.80 (0.5-1.4) mg/dL Estim Creat Clear Calc 141.2 Estimated GFR > 60 Random Glucose 88 (60-115) mg/dL Calcium 9.7 (8.4-10.2) mg/dL Magnesium 1.9 (1.6-2.6) mg/dL Total Bilirubin 1.5 H (0.0-1.0) mg/dL Direct Bilirubin 0.5 (0.0-0.5) mg/dL AST 22 (5-37) U/L ALT 19 (0-40) U/L Alkaline Phosphatase 85 (39-117) U/L Total Protein 7.3 (6.5-8.0) g/dL Albumin 4.7 (3.5-5.0) g/dL Lipase 19 (8-78) U/L Urine Color Yellow Urine Appearance Clear Urine pH 6.0 (5.0-9.0) Ur Specific [place] 1.015 (1.005-1.025) Urine Protein Negative (Neg-Trace) mg/dL Urine Glucose (UA) Negative (Negative) mg/dL Urine Ketones Negative (Negative) mg/dL Urine Blood Negative (Negative) Urine Nitrite Negative (Negative) Ur Leukocyte Esterase Negative (Negative) Independent Interpretation I performed an independent interpretation of an: CT Scan Interpretation: CT abdomen/pelvis without bowel obstruction Radiology Impression Discussion of test interpretation with radiology: I have reviewed the radiologist's reading. Radiologist Impression: Procedure(s): CT abdomen pelvis w IV con Accession Number(s): [id number] cc: Elijah Park MD; Shalini Danielson~ Report Number: [id number]: Total DLP = 392.00 mGy-cm Reason for Exam: RLQ abd pain EXAMINATION: CT ABDOMEN PELVIS WITH IV CONTRAST HISTORY: RLQ abd pain COMPARISON: There are no prior studies for available comparison. TECHNIQUE: CT scan of the abdomen and pelvis was performed following administration of 85 mL Omnipaque 350 using standard departmental protocol. Coronal and sagittal reformatted images were generated and reviewed. This CT exam was performed with one or more of the following dose reduction techniques: automated exposure control, adjustment of the mA and/or kV according to patient size, use of iterative reconstruction technique. DLP: 392 mGy-cm FINDINGS: LOWER CHEST: The visualized lung bases are clear. There is no pleural effusion. CARDIOVASCULATURE: The heart is normal in size. There is no pericardial effusion. LIVER: The liver is normal in size and contour. No liver mass is identified. The hepatic and portal veins are patent. GALLBLADDER / BILE DUCTS: The gallbladder is unremarkable. There is no intra or extrahepatic biliary ductal dilatation. SPLEEN: The spleen is normal in size. No focal splenic lesion is identified. PANCREAS: The pancreas is unremarkable in appearance. ADRENAL GLANDS: Within normal limits. KIDNEYS/RETROPERITONEUM: No renal calculi are identified. There is no hydronephrosis. No renal masses are identified. LYMPH NODES: No abdominal or pelvic lymphadenopathy. VASCULATURE: The abdominal aorta is normal in caliber. MESENTERY/PERITONEUM: No free fluid. No masses. There is no free intraperitoneal gas. STOMACH: Normal SMALL BOWEL: The small bowel is normal in caliber. COLON: Mild wall thickening of the colon and stranding of the fat suggestive of mild colitis. This is greatest involving the distal right, transverse and left colon. Increased stool in the colon suggestive of mild constipation. No dilated loops of bowel to suggest obstruction. The cecum is located low in the pelvis. APPENDIX: Not definitely seen. No inflammatory changes to suggest acute appendicitis. URINARY BLADDER/PELVIC ORGANS: The urinary bladder is not optimally distended. The prostate gland does not appear enlarged. BONES / SOFT TISSUES: No suspicious bony or soft tissue abnormalities. CT/CT abdomen pelvis w IV con IMPRESSION: Mild colitis of the colon and constipation. Electronically signed by: Kerry Domingo MD 08/04/2025 04:21 PM [facility] Independent Historian Clinical information obtained from an independent historian. History obtained from or confirmed by: Parent Prescription Management I considered prescription management with: Pain Medication Social Determinants Patient?s care significantly limited by Social Determinants of Health including: Other Social Determinant of Health Medications Administered Discontinued Medications Generic Name Dose Route Start Last Admin Trade Name Freq PRN Reason Stop Dose Admin Sodium Chloride 1,000 mls @ 999 mls/hr 08/04/25 13:45 08/04/25 16:31 Ns IV 08/04/25 14:45 Infused .Q1H1M TAMMY Infusion Iohexol 100 ml 08/04/25 15:49 08/04/25 15:49 Iohexol 350 Mg/Ml 100 Ml Infus..Btl IV 08/04/25 15:50 85 ml ONCE ONE Administration Ketorolac Tromethamine 30 mg 08/04/25 13:41 08/04/25 14:00 Ketorolac Tromethamine 30 Mg/Ml Vial IVPUSH 08/04/25 13:42 30 mg ONCE ONE Administration Critical Care Time Critical Care Time Critical Care Time: No Discharge Plan Discharge Clinical Impression: Colitis Constipation Qualifiers: Constipation type: unspecified constipation type Qualified Code(s): K59.00 - Constipation, unspecified Patient Disposition: Home, Self-Care Instructions: Constipation (ED) Additional Instructions: Ct imaging show inflammation of colon secondary to constipation. Take the bowel regimen as instructed. Take the Dicyclomine as needed for abdominal pain. Follow up with your primary care doctor. There is no signs of appedicitis. Prescriptions: New magnesium citrate Solution 300 ml PO DAILY PRN (Reason: constipation) Qty: 296 0RF sennosides [senna] 8.6 mg tablet 8.6 mg PO DAILY 14 Days Qty: 14 0RF dicyclomine 10 mg capsule 10 mg PO TID PRN (Reason: abdominal pain) Qty: 20 0RF ondansetron 4 mg tablet,disintegrating 4 mg PO Q8H PRN (Reason: nausea and vomiting) Qty: 14 0RF No Action sertraline 100 mg tablet 100 mg PO QAM hydroxyzine pamoate 25 mg capsule 25 mg PO BID PRN Interventions: ED Discharge Assessment Last Done: 08/04/25 16:42 Discharge Date/Time: 08/04/25 16:42 Print Language: Gibraltarian
[2025-08-04 13:16] LABS: Hematocrit 45.9 % (42.0-52.0); Hemoglobin 15.6 g/dl (14.0-18.0); Imm Gran Abs Auto 0.01 X10*3/uL (0.00-0.03); Imm Gran Pct Auto 0.2 % (0.0-0.4); Lymphocytes Absolute Auto 2.3 X10*3/uL (1.2-4.9); MANUAL DIFF FLAG NO; Mean Corpuscular HGB Conc 34.0 g/dl (31.0-36.0); Mean Corpuscular Hemoglobin 27.9 pg (27.0-33.0); Mean Corpuscular Volume 82.1 fL (80.0-98.0); NRBC Abs Auto 0.000 X10*3/uL (0.0-0.012); NRBC Pct Auto 0.0 /100WBC (0.0-0.2); Platelet Count 178 X10*3/uL (160-400); Red Blood Count 5.59 X10*6/uL (4.60-5.80); White Blood Count 5.2 X10*3/uL (4.8-10.8)
[2025-08-04 13:31] LABS: Alanine Aminotransferase 19 U/L (0-40); Albumin Level 4.7 g/dL (3.5-5.0); Alkaline Phosphatase 85 U/L (39-117); Anion Gap 8 (12-20); Aspartate Amino Transferase 22 U/L (5-37); Blood Urea Nitrogen 8 mg/dL (9-16); Calcium 9.7 mg/dL (8.4-10.2); Carbon Dioxide 30 mmol/L (22-29); Chloride 107 mmol/L (96-108); Creatinine Clr Calc Pharmacy 141.2; Estimated Glomerular Filt Rate > 60; Lipase 19 U/L (8-78); Magnesium 1.9 mg/dL (1.6-2.6); Potassium 3.9 mmol/L (3.3-5.1); Sodium 141 mmol/L (135-145); Total Protein 7.3 g/dL (6.5-8.0)
[2025-08-04 14:18] LABS: Appearance Urine Clear; Glucose Urine UA Negative (Negative); PH 6.0 (5.0-9.0); Specific Gravity - Urine 1.015 (1.005-1.025)
[2025-08-04] MEDS: iohexoL 350 MG/ML 100 ML INFUS..BTL IV (15:49)
[2025-08-04 16:42] VITALS: BP 123/60; PULSE 53; RESP 16; TEMP 36.4; O2SAT 99
== END 2025-08-04 16:42 | disposition home or self-care (01) ==
PROVIDERS: Physician Assistant; Emergency Provider Student in an Organized Health Care Education/Training Program; PCP Student in an Organized Health Care Education/Training Program
DX: K52.9 Noninfective gastroenteritis and colitis, unspecified (principal); K59.00 Constipation, unspecified; R10.31 Right lower quadrant pain; F41.9 Anxiety disorder, unspecified; Z79.899 Other long term (current) drug therapy
CPT/HCPCS: 36415; 74177; 80048; 80076; 81003; 83690; 83735; 85025; 93005; 96361; 96374; 99212; 99285; J1885; Q9967

== ENCOUNTER → 2025-08-04 13:46 | Outpatient (BNV) | payer OTHER, SELFPAY | PROVIDERS: Emergency Provider Student in an Organized Health Care Education/Training Program; PCP Student in an Organized Health Care Education/Training Program; Visit Provider Radiology Diagnostic Radiology | DX: K52.9 Noninfective gastroenteritis and colitis, unspecified (principal); K59.00 Constipation, unspecified | CPT/HCPCS: 74177 ==

== ENCOUNTER → 2025-08-04 14:02 | Outpatient (BNV) | payer OTHER, SELFPAY | PROVIDERS: Emergency Provider Student in an Organized Health Care Education/Training Program; PCP Student in an Organized Health Care Education/Training Program; Visit Provider Internal Medicine | DX: R00.1 Bradycardia, unspecified (principal) | CPT/HCPCS: 93010 ==